=== PATIENT | male | born 1965 | race Caucasian/White ===

== ENCOUNTER 2020-05-15 10:01 | Inpatient (IN) ==
[2020-05-15] MEDS ORDERED: DIATRIZOATE MEGLU/DIATRIZO SOD 30 ML BOTTLE PO ONE (10:02)
[2020-05-15] MEDS ORDERED: IOPAMIDOL 100 ML BOTTLE IV ONE (10:02)
[2020-05-15] MEDS ORDERED: 0.9 % SODIUM CHLORIDE 1,000 ML IV ONE (10:17)
[2020-05-15] MEDS ORDERED: ONDANSETRON 4 MG/2 ML VIAL IV ONE (10:17)
[2020-05-15] MEDS: HYDROmorphone 0.5 MG/0.5 ML SYRINGE IV PRN ×8 (10:31→22:13)
--- NOTE | 2020-05-15 10:34 | Emergency Department Note ---
Abdominal Pain HPI - General Chief Complaint: Abdominal Pain Stated Complaint: Pancreatitis Time Seen by Provider: 05/15/20 10:16 Source: patient Mode of arrival: ambulatory Limitations: no limitations - History of Present Illness HPI Narrative: 54-year-old male presents with upper mid sharp stabbing abdominal pain since , about 72 hours ago. Has a history of pancreatitis and feels like he has pancreatitis again. Has had multiple abdominal surgeries in the past couple of years. States he had a foot of colon removed and also had a small bowel obstruction, states "they found meat floating around in their ". In 2019 he also had his gallbladder out. States he has not had any episodes since then. On Saturday night he ate a big greasy cheeseburger right before this started. He said in the past when he has had pancreatitis he was drinking quite a bit of alcohol but he is not currently. He did have one episode of nausea and vomiting on . He has had diarrhea intermittently since including this morning. No fever or chills. He currently is not nauseated but does not have much of an appetite. No dysuria or frequency. He does have hydrocodone tens at home that he takes very rarely for severe cluster headaches and states he did take 1 of those at home last night but not today. - Related Data Home Medications Medication Instructions Recorded Confirmed Hydrocodone-Acetamin 10-325 mg 1 tab PO Q4-6HP PRN 05/15/20 05/15/20 Allergies Allergy/AdvReac Type Severity Reaction Status Date / Time codeine Allergy Mild Rash Verified 05/15/20 10:07 Review of Systems All systems ED: reviewed and negative except as stated. Abdominal Pain PMH - Past Medical History Medical history: Reports: other (Pancreatitis) Surgical history ED: Reports: cholecystectomy, other (Abdominal surgeries for bowel resection) - Social History Smoking status: Never smoker Alcohol use: Reports: Occasionally Drug use: Reports: none Physical Exam Limitations: no limitations General appearance: alert, grimacing Head: atraumatic, normocephalic, normal inspection Eye: Present: normal appearance. Absent: conjunctival injection ENT: Present: mucous membranes moist Chest: Present: symmetric chest wall rise Respiratory: Present: normal lung sounds bilaterally. Absent: respiratory distress, rales/crackles, accessory muscle use Cardiovascular: Present: regular rate, normal heart sounds Abdominal: Present: soft, distention (difuse moderate), tenderness (difuse but worse mid upper abd), normal bowel sounds. Absent: guarding, rebound, mass Extremities: Present: normal inspection Neurological: Present: alert, oriented X3 Psychiatric: Present: normal affect, normal mood Skin: Present: warm, dry, intact, normal color Course Course Narrative: At 1417 I did speak with the hospitalist, Dr. Ribeiro who agrees to accept this patient. Vital Signs Temperature 97.5 F 05/15/20 10:02 Pulse Rate 106 H 05/15/20 10:02 Respiratory Rate 05/15/20 10:02 Blood Pressure 122/77 05/15/20 10:02 Pulse Oximetry (%) 100 05/15/20 10:02 Temperature 97.5 F 05/15/20 10:02 Pulse Rate 90 05/15/20 14:09 Respiratory Rate 05/15/20 10:02 Blood Pressure 151/108 05/15/20 14:01 Pulse Oximetry (%) 96 05/15/20 14:09 Abdominal Pain - Lab Data Lab results reviewed: Yes I reviewed the patient's lab results. Result diagrams: 05/15/20 10:33 05/15/20 11:50 Lab Results 05/15/20 05/15/20 05/15/20 Range/Units 10:33 10:33 11:50 WBC 6.0 (4.50-11.00) K/mcL RBC 5.27 (4.63-6.08) M/mcL Hgb 16.5 (13.7-17.5) g/dL Hct 47.1 (40.1-51.0) % POC Hct 48.0 (41.0-55.0) % MCV 89.4 (80.0-100.0) fL MCH 31.3 (26.0-34.0) pg MCHC 35.0 (31.0-36.0) g/dL RDW 12.2 (11.5-14.5) % Plt Count 182 (140-440) K/mcL MPV 12.0 H (7.4-10.4) fL Gran % 56.7 (38.0-78.0) % Lymph % (Auto) 32.5 (15.5-49.0) % [place] % (Auto) 9.8 (1.0-12.0) % Eos % (Auto) 0.8 (0.0-7.0) % Baso % (Auto) 0.2 (0.0-2.0) % Gran # 3.42 (1.80-8.00) K/mcL Lymph # (Auto) 1.96 (1.50-4.80) K/mcL [place] # (Auto) 0.59 (0.10-0.90) K/mcL Eos # (Auto) 0.05 (0.00-0.70) K/mcL Baso # (Auto) 0.01 (0.00-0.30) K/mcL POC Sodium 137 (133-145) mmol/L Sodium TNP 136 POC Potassium 4.6 (3.3-5.1) mmol/L Potassium TNP 4.0 POC Chloride 101 (96-108) mmol/L Chloride TNP 97 Carbon Dioxide TNP 26 POC Total CO2 29 (22-30) mmol/L Anion Gap TNP 13.0 POC BUN 20 (6-20) mg/dl BUN TNP 14 Creatinine TNP 1.0 POC Creatinine 1.1 (0.7-1.2) mg/dl GFR Calculation Not Reportable 84 Glucose TNP 136 H POC Glucose 153 H (70-105) mg/dL Calcium TNP 8.3 L POC WB Ioniz Calcium 1.08 L (1.16-1.32) mmol/L Total Bilirubin TNP 1.0 AST TNP 50 H ALT TNP 115 H Alkaline Phosphatase TNP 52 Total Protein TNP 6.6 Albumin TNP 4.1 Globulin TNP 2.5 Albumin/Globulin Ratio TNP 1.6 Lipase TNP 602 H - Radiology Data Radiology results reviewed: Yes I reviewed the patient's radiology results. Disposition Pt seen by STAFF TECHNOLOGIST/PA only: Yes Clinical Impression: Intractable abdominal pain, Pancreatitis, acute Disposition: Xfer As Inpt ([facility]) Condition: Fair Referrals: Patti Thompson ARNP [Primary Care Provider] - Time of Disposition: 14:17
[2020-05-15 10:37] LABS: POC Blood Urea Nitrogen 20 mg/dl (6-20); POC CO2 29 mmol/L (22-30); POC Calcium, Ionized 1.08 mmol/L (1.16-1.32); POC Chloride 101 mmol/L (96-108); POC Creatinine 1.1 mg/dl (0.7-1.2); POC Glucose, Random 153 mg/dL (70-105); POC Potassium 4.6 mmol/L (3.3-5.1); POC Sodium 137 mmol/L (133-145)
[2020-05-15 11:11] LABS: Basophils # (Auto) 0.01 K/mcL (0.00-0.30); Basophils % (Auto) 0.2 % (0.0-2.0); Eosinophils # (Auto) 0.05 K/mcL (0.00-0.70); Eosinophils % (Auto) 0.8 % (0.0-7.0); Granulocytes % (Auto) 56.7 % (38.0-78.0); Hematocrit 47.1 % (40.1-51.0); Hemoglobin 16.5 g/dL (13.7-17.5); Lymphocytes # (Auto) 1.96 K/mcL (1.50-4.80); Lymphocytes % (Auto) 32.5 % (15.5-49.0); Mean Cell Volume 89.4 fL (80.0-100.0); Monocytes # (Auto) 0.59 K/mcL (0.10-0.90); Monocytes % (Auto) 9.8 % (1.0-12.0); Platelet Count 182 K/mcL (140-440); RBC 5.27 M/mcL (4.63-6.08); Red Cell Distribution Width 12.2 % (11.5-14.5)
--- NOTE | 2020-05-15 11:35 | Cat Scan Report ---
INDICATION: severe mid upper abd pain, history pancreatic resection COMPARISON: None. TECHNIQUE: Axial images were obtained through the abdomen and pelvis. Sagittally and coronally reformatted images. 80 mL Isovue 370 injected intravenously. Oral contrast material was administered FINDINGS: Lung bases:Negative. No pulmonary parenchymal nodule. No pleural fluid or pericardial fluid Liver:There are nonspecific low density lesions in the liver. These include: 4 mm left lobe, image 25 8 mm right lobe, image 39 7 mm right lobe, image 49 Findings are nonspecific and these are probably benign. This patient has a history of primary malignancy ultrasound may be helpful to exclude small solid lesions. Liver is otherwise negative. No evidence for cirrhosis. Liver contour is smooth Gallbladder, bilary:Previous cholecystectomy. No dilated bile ducts Spleen:No splenomegaly. Normal enhancement of splenic and portal veins. Pancreas:There is peripancreatic inflammatory change. No focal intrapancreatic attenuation abnormality. No evidence for pancreatic necrosis or abscess. Pancreatic parenchyma enhances normally. There is no focal mass. There is no pseudocyst. Appearance is consistent with interstitial edematous pancreatitis. Pancreatic duct is not dilated. No solid pancreatic mass. There is minimal retroperitoneal fluid in the right anterior pararenal space. Adrenal glands:Negative Kidneys, ureters, bladder:No solid or cystic renal mass. No hydronephrosis. No obstructing calculi. There is a 3 mm nonobstructing right mid to upper pole stone There is no hydroureter. No ureteral stone No bladder calculi or detectable mass Gastrointestinal:No detectable colonic mass. There is no diverticulitis. Patient has undergone previous partial colectomy with a right sided enterocolonic anastomosis Small bowel is negative. No mechanical small bowel obstruction. Stomach and duodenum are unremarkable Appendix: The appendix is not present Vascular:Negative abdominal aorta. Superior mesenteric artery and celiac trunk are normal. Normal opacification of the inferior mesenteric artery Lymphatic:No retroperitoneal or mesenteric adenopathy Mesentery, peritoneum: No free intraperitoneal fluid. No mesenteric or retroperitoneal mass.. No intra-abdominal abscess Reproductive:Prostate is not significantly enlarged Musculoskeletal:No lumbar compression fractures. Sacrum and pelvis are negative. No hip fracture. Patulous anterior abdominal wall. Small umbilical hernia with small bowel extending superficially to the skin surface IMPRESSION: 1. Interstitial edematous pancreatitis. No pancreatic abscess or necrosis 2. Nonspecific low density lesions in the liver 3. Nonobstructing right renal calculus 4. Previous partial colectomy with enterocolonic anastomosis 5. Patulous anterior abdominal wall and small umbilical hernia The exam was performed using radiation dose optimization techniques including, but not limited to, automated exposure control, adjustment of the mA and/or kV according to patient size and use of iterative reconstruction technique. Interpreted and Authenticated by: Shahram Harp 05/15/20
[2020-05-15 12:59] LABS: ALT/SGPT 115 U/l (0-40); AST/SGOT 50 U/l (0-37); Albumin 4.1 gm/dL (3.2-5.2); Albumin/Globulin Ratio 1.6 (1.0-2.3); Alkaline Phosphatase 52 U/L (39-117); Blood Urea Nitrogen 14 mg/dl (6-20); Calcium 8.3 mg/dl (8.6-10.4); Carbon Dioxide 26 mmol/L (22-30); Chloride 97 mmol/L (96-108); Globulin 2.5 gm/dL (2.2-3.7); Glomerular Filtration Rate 84; Glucose 136 mg/dL (70-105)
[2020-05-15] MEDS ORDERED: HYDROmorphone 1 MG/ML SYRINGE IV ONE (13:23)
--- NOTE | 2020-05-15 14:29 | Internal Med History&Physical ---
Medical - H&P: HPI Patient information: Note initiated : 05/15/20 at 2:28 pm Service Date, if different from initiated Date: [] Patient: Davon Gonzalez a 54 y/o M admitted on for Pancreatitis. Chief Complaint: [] Chief complaint: Abdominal pain since History of present illness: Mr. Gonzalez is a 54 year old M with a history of gallstone pancreatitis since 2016 and had recurrent episodes leading to bowel necrosis and partial colectomy and prolonged hospitalization in 2016 and . He status post cholecystectomy. For the last year he has been doing well until he started experiencing abdominal discomfort 4 out of 10 starting this that progressed over the next few days.. Over the next 3 days his pain worsened from 4 out of 10-10 out of 10 associated nausea. Incidentally the symptoms dramatically worsen after he ate a cheeseburger yesterday. He now presents to the ER with above symptoms. Denies fever/flank discoloration/bloody stool/headache or photophobia or jaundice. He had 1 drink [place] Mule last Saturday. Initial work-up in the ER was consistent with acute pericarditis on CT abdomen/lipase over 600. Patient received crystalloid/antiemetics/analgesics. Hospital service was consulted for admission At the time evaluation patient is alert and oriented. He was able to answer most the question and endorse history as above. He says he has been sober exc ept for occasional drink on the weekend. He denies changes in medications. Review of systems 10 point review system was performed and is negative except for ones discussed above Medical - H&P: PMH Medical history: Recurrent pancreatitis Cholecystectomy Partial colon resection following bowel perforation Chronic pain Medical - H&P: Meds Home Medications Medication Instructions Recorded Confirmed Type Hydrocodone-Acetamin 10-325 mg 1 tab PO Q4-6HP PRN 05/15/20 05/15/20 History Allergies Allergy/AdvReac Type Severity Reaction Status Date / Time codeine Allergy Mild Rash Verified 05/15/20 10:07 Medical - H&P: Exam - Constitutional Vitals: Temp Pulse Resp BP Pulse Ox 97.5 F 90 20 151/108 96 05/15/20 10:02 05/15/20 14:09 05/15/20 10:02 05/15/20 14:01 05/15/20 14:09 General appearance: no acute distress Exam: Head normocephalic Oral cavity dry No ear nose discharge Neck no lymphadenopathy No scleral icterus S1-S2 regular rhythm no murmur Nonlabored breathing Abdomen tender, diminished breath sounds, midline surgical scar but no ecchymosis or bruising Lower extremity no cyanosis clubbing or joint swelling Skin no suspicious lesion Psych alert cooperative Neuro nonfocal Medical - H&P: Reslt - Labs CBC & Chem 7: 05/15/20 10:33 05/15/20 11:50 Labs: Short CBC 05/15/20 Range/Units 10:33 WBC 6.0 (4.50-11.00) K/mcL Hgb 16.5 (13.7-17.5) g/dL Hct 47.1 (40.1-51.0) % Plt Count 182 (140-440) K/mcL BMP 05/15/20 05/15/20 10:33 11:50 Sodium TNP 136 Potassium TNP 4.0 Chloride TNP 97 Carbon Dioxide TNP 26 BUN TNP 14 Creatinine TNP 1.0 Glucose TNP 136 H Calcium TNP 8.3 L Liver Function 05/15/20 05/15/20 Range/Units 10:33 11:50 Total Bilirubin TNP 1.0 AST TNP 50 H ALT TNP 115 H Alkaline Phosphatase TNP 52 Albumin TNP 4.1 Medical - H&P: A/P (1) Pancreatitis, acute Current visit: Yes Status: Acute * Acute pancreatitis-recurrent in nature. Prior gallstones status post cholecystectomy. Intermittent alcohol use. Low [place] and [place] 2 score. Patient be admitted to [facility] for conservative management according bowel rest/antiemetics/analgesics and crystalloids. Keep n.p.o.CT no evidence of pancreatic necrosis/hemorrhage or pseudocyst * Abdominal pain management as needed opiods * Full code * Prophylaxis heparin Plan * Inpatient admission * Serial CRP/lipase * Bowel rest and pancreatitis management per protocol * Aggressive pain management
[2020-05-15] MEDS ORDERED: ACETAMINOPHEN 650 MG/65 ML BOTTLE IV PRN (14:40)
[2020-05-15] MEDS ORDERED: hydrALAZINE 20 MG/ML VIAL IV PRN (14:40)
[2020-05-15] MEDS ORDERED: HYDROmorphone 0.5 MG/0.5 ML SYRINGE IV PRN (14:40)
[2020-05-15] MEDS ORDERED: MAGNESIUM SULFATE 2 GM/50 ML BAG IV PRN (14:40)
[2020-05-15] MEDS ORDERED: PROMETHAZINE 25 MG/ML VIAL IV PRN (14:40)
[2020-05-15] MEDS ORDERED: ONDANSETRON 4 MG ODT TABLET SL PRN (14:40)
[2020-05-15] MEDS ORDERED: POLYETHYLENE GLYCOL 3350 17 GM PACKET PO PRN (14:40)
[2020-05-15] MEDS ORDERED: MELATONIN 3 MG TABLET PO PRN (14:40)
[2020-05-15] MEDS ORDERED: POTASSIUM CHLORIDE 40 MEQ in DEXTROSE 5% IN WATER 500 ML IV PRN (14:40)
[2020-05-15] MEDS ORDERED: METOPROLOL TARTRATE 5 MG/5 ML VIAL IV PRN (14:40)
[2020-05-15] MEDS ORDERED: BISACODYL 10 MG SUPP.RECT PR PRN (14:40)
[2020-05-15] MEDS ORDERED: ONDANSETRON 4 MG/2 ML VIAL IV PRN (14:40)
[2020-05-15] MEDS: 0.9 % SODIUM CHLORIDE 2,000 ML IV SCH ×2 (15:40→16:53)
[2020-05-15] MEDS: 0.9 % SODIUM CHLORIDE 1,000 ML IV SCH (18:09)
[2020-05-15] MEDS: HEPARIN 5,000 UNIT/ML VIAL SQ SCH (21:10)
[2020-05-15] MEDS: SENNOSIDES/DOCUSATE SODIUM 1 TAB TABLET PO SCH (21:10)
[2020-05-15] MEDS: DOCUSATE SODIUM 100 MG CAPSULE PO SCH (21:10)
[2020-05-15] MEDS: 0.9 % SODIUM CHLORIDE 10 ML SYRINGE IV SCH (21:10)
[2020-05-15] MEDS ORDERED: HYDROmorphone 1 MG/ML SYRINGE ONE (22:12)
[2020-05-16] MEDS ORDERED: HYDROmorphone 1 MG/ML SYRINGE ONE ×4 (00:13→06:24)
[2020-05-16] MEDS: HYDROmorphone 0.5 MG/0.5 ML SYRINGE IV PRN ×12 (00:19→23:03)
[2020-05-16] MEDS: 0.9 % SODIUM CHLORIDE 1,000 ML IV SCH ×5 (00:39→18:56)
[2020-05-16] MEDS: 0.9 % SODIUM CHLORIDE 10 ML SYRINGE IV SCH ×3 (04:25→23:02)
[2020-05-16] MEDS: PANTOPRAZOLE 40 MG TABLET PO SCH (06:29)
[2020-05-16 08:21] LABS: Hematocrit 40.1 % (40.1-51.0); Hemoglobin 13.2 g/dL (13.7-17.5); Mean Corpuscular HGB Conc 32.9 g/dL (31.0-36.0); Mean Platelet Volume 10.8 fL (7.4-10.4); Platelet Count 164 K/mcL (140-440); RBC 4.22 M/mcL (4.63-6.08); Red Cell Distribution Width 12.5 % (11.5-14.5); WBC 4.8 K/mcL (4.50-11.00)
[2020-05-16 08:28] LABS: ALT/SGPT 97 U/l (0-40); AST/SGOT 51 U/l (0-37); Albumin 4.1 gm/dL (3.2-5.2); Albumin/Globulin Ratio 1.6 (1.0-2.3); Alkaline Phosphatase 69 U/L (39-117); Bilirubin,Direct 0.3 mg/dL (0.0-0.3); Bilirubin,Total 0.9 mg/dL (0.0-1.0); Blood Urea Nitrogen 12 mg/dl (6-20); C-Reactive Protein 4.6 mg/dl (0.0-0.8); Calcium 7.9 mg/dl (8.6-10.4); Carbon Dioxide 23 mmol/L (22-30); Chloride 102 mmol/L (96-108); Globulin 2.5 gm/dL (2.2-3.7); Glomerular Filtration Rate 96; Glucose 93 mg/dL (70-105); Lactate Dehydrogenase 200 U/L (94-250); Triglycerides 303 mg/dl (<150); Uric Acid 4.6 mg/dL (2.5-8.0)
[2020-05-16] MEDS: DOCUSATE SODIUM 100 MG CAPSULE PO SCH ×2 (08:42→20:58)
[2020-05-16] MEDS: HEPARIN 5,000 UNIT/ML VIAL SQ SCH ×2 (08:42→21:02)
[2020-05-16 08:56] LABS: Eosinophils % (Manual) 2 % (0-7); Lymphocytes % 42 % (15-49); Monocytes % (Manual) 4 % (1-12); Platelet Estimate NORMAL (NORMAL); RBC Morphology NORMAL (NORMAL); Segmented Neutrophils % 52 % (38-78)
--- NOTE | 2020-05-16 09:11 | Internal Med Progress Note ---
Medical - PN: Subj Patient information: Note initiated : 05/16/20 at 9:09 am Service Date, if different from initiated Date: [] Patient: Davon Gonzalez a 54 y/o M admitted on 05/15/20 for Pancreatitis. Chief Complaint: [] Interval history: Mr. Gonzalez is a 54 year old M with a history of gallstone pancreatitis since and had recurrent episodes leading to bowel necrosis and partial colectomy and prolonged hospitalization in 2016 and . He status post cholecystectomy. For the last year he has been doing well until he started experiencing abdominal discomfort 4 out of 10 starting this that progressed over the next few days.. Over the next 3 days his pain worsened from 4 out of 10-10 out of 10 associated nausea. Incidentally the symptoms dramatically worsen after he ate a cheeseburger yesterday. He now presents to the ER with above symptoms. Denies fever/flank discoloration/bloody stool/headache or photophobia or jaundice. He had 1 drink [place] Mule last Saturday. Initial work-up in the ER was consistent with acute pericarditis on CT abdomen/lipase over 600. Patient received crystalloid/antiemetics/analgesics. Hospital service was consulted for admission At the time evaluation patient is alert and oriented. He was able to answer most the question and endorse history as above. He says he has been sober except for occasional drink on the weekend. He denies changes in medications. 05/16-patient clinically improving. White count stable. Hemodynamic stable. Abdominal pain improving. Attempt oral clears. - Constitutional Vitals: Vital Signs Temp Pulse Resp BP Pulse Ox 98.2 F 65 18 128/89 95 05/16/20 07:39 05/16/20 08:00 05/16/20 07:39 05/16/20 07:39 05/16/20 08:00 Period Temp Pulse Resp BP Sys/[place]illa Pulse Ox Last 24 Hr 97.2 F-98.2 F 65-106 16-24 113-180/77-114 91-100 Intake and Output 05/15/20 05/16/20 05/16/20 21:59 05:59 13:59 Intake Total 1217 1000 Output Total 600 250 Balance 1217 400 -250 Weight 188 lb Intake & Output: Intake & Output 05/15/20 05/16/20 05/16/20 21:59 05:59 13:59 Intake Total 1217 1000 Output Total 600 250 Balance 1217 400 -250 Weight 188 lb Intake: IV 1217 1000 Sodium Chloride 0.9% 1,000 ml @ 1217 1000 125 mls/hr IV .Q8H [facility] Rx#: [id number] Oral 0 0 Output: Void Amount 600 250 Other: Urine Appearance Clear Clear Urine Color Dark Marce Dark Yellow General appearance: no acute distress Exam: Distended but minimally tender abdomen Alert oriented Nonlabored breathing Medical - PN: Obj Da - Labs CBC & Chem 7: 05/16/20 05:25 05/16/20 05:25 Labs: Abnormal Lab Results 05/16/20 05/16/20 05/15/20 05:25 05:25 11:50 RBC 4.22 L Hgb 13.2 L MPV 10.8 H Glucose 136 H POC Glucose Calcium 7.9 L 8.3 L POC WB Ioniz Calcium Phosphorus 2.0 L GGT 229 H AST 51 H 50 H ALT 97 H 115 H C-Reactive Protein 4.6 H Triglycerides 303 H Lipase 602 H 05/15/20 05/15/20 10:33 10:33 RBC Hgb MPV 12.0 H Glucose POC Glucose 153 H Calcium POC WB Ioniz Calcium 1.08 L Phosphorus GGT AST ALT C-Reactive Protein Triglycerides Lipase Meds: Medications Acetaminophen (Tylenol) 650 mg PO Q4-6HP PRN; Protocol PRN Reason: Per Pain Protocol/Fever > 101 Bisacodyl (Dulcolax) 10 mg ND Q2-3DAYS PRN PRN Reason: Constipation Docusate Sodium (Colace) 100 mg PO BID [facility] Last Admin: 05/16/20 08:42 Dose: Not Given Documented by: Heparin Sodium (Porcine) (Heparin) 5,000 unit SQ Q12 [facility] Last Admin: 05/16/20 08:42 Dose: 5,000 unit Documented by: Hydralazine HCl (Apresoline) 10 mg IV Q4-6HP PRN PRN Reason: Hypertension Hydromorphone HCl (Dilaudid) 0 mg IV Q2HP PRN; Protocol PRN Reason: Per Pain Protocol Last Admin: 05/16/20 08:42 Dose: 0.5 mg Documented by: Magnesium Sulfate (Magnesium Sulfate) 2 gm in 50 mls @ 50 mls/hr IV UD PRN PRN Reason: MG = or < 1.7 Potassium Chloride 40 meq/ (Dextrose) 520 mls @ 130 mls/hr IV UD PRN PRN Reason: K+ = or < 3.5 Sodium Chloride (Sodium Chloride 0.9%) 2,000 mls @ 0 mls/hr IV BOLUS [facility] Last Admin: 05/15/20 16:53 Dose: 1,000 mls/hr Documented by: Sodium Chloride (Sodium Chloride 0.9%) 1,000 mls @ 125 mls/hr IV .Q8H [facility] Last Admin: 05/16/20 02:35 Dose: 125 mls/hr Documented by: Acetaminophen (Ofirmev) 650 mg in 65 mls @ 130 mls/hr IV Q6HP PRN; Protocol PRN Reason: Per Pain Protocol/Fever > 101 Last Admin: 05/15/20 19:36 Dose: 130 mls/hr Documented by: Melatonin (Melatonin 3mg Tablet) 3 mg PO HSP PRN PRN Reason: Insomnia Metoprolol Tartrate (Lopressor) 5 mg IV Q5M PRN PRN Reason: Heart Rate > 140 bpm Ondansetron HCl (Zofran Odt) 4 mg SL Q4-6HP PRN; Protocol PRN Reason: Nausea And Vomiting Ondansetron HCl (Zofran) 4 mg IV Q4-6HP PRN; Protocol PRN Reason: Nausea And Vomiting Pantoprazole Sodium (Protonix) 40 mg PO QAMAC [facility] Last Admin: 05/16/20 06:29 Dose: 40 mg Documented by: Polyethylene Glycol (Miralax) 17 gm PO DAILYP PRN PRN Reason: Constipation Promethazine HCl (Phenergan) 6.25 mg IV Q4-6HP PRN; Protocol PRN Reason: Nausea And Vomiting Senna/Docusate Sodium (Senna Plus Tablet) 1 tab PO HS [facility] Last Admin: 05/15/20 21:10 Dose: Not Given Documented by: Sodium Chloride (Saline Flush) 10 ml IV Q8 [facility] Last Admin: 05/16/20 04:25 Dose: Not Given Documented by: Medical - PN: A/P - Time Spent With Patient Total time spent is greater than 50% in coordination of care (as documented) at patient's floor/unit and/or counseling patient: 15 - 24 minutes (1) Pancreatitis, acute Status: Acute Assessment and plan: * Acute pancreatitis-clinical improvement noted. Prior gallstones status post cholecystectomy. Intermittent alcohol use. Low [place] and [place] 2 score. Start oral clears. * Abdominal pain management as needed opiods * Full code * Prophylaxis heparin Plan * Start oral clear * Bowel rest and pancreatitis management per protocol * Aggressive pain management Current Visit: Yes Medical - PN: Qual - Stroke Symptom Onset Unknown: No - VTE Deep Vein Thrombosis/Pulmonary Embolism Present on Admission: No
[2020-05-16] MEDS: 0.9 % SODIUM CHLORIDE 2,000 ML IV SCH (10:45)
[2020-05-16] MEDS: SENNOSIDES/DOCUSATE SODIUM 1 TAB TABLET PO SCH (20:59)
[2020-05-17] MEDS: HYDROmorphone 0.5 MG/0.5 ML SYRINGE IV PRN ×3 (00:52→06:52)
[2020-05-17] MEDS: 0.9 % SODIUM CHLORIDE 1,000 ML IV SCH ×2 (02:34→06:54)
[2020-05-17] MEDS: 0.9 % SODIUM CHLORIDE 10 ML SYRINGE IV SCH ×3 (06:25→21:04)
[2020-05-17] MEDS: PANTOPRAZOLE 40 MG TABLET PO SCH (06:44)
[2020-05-17 07:10] LABS: Hematocrit 35.5 % (40.1-51.0); Hemoglobin 12.1 g/dL (13.7-17.5); Mean Cell Volume 92.9 fL (80.0-100.0); Mean Corpuscular HGB Conc 34.1 g/dL (31.0-36.0); Platelet Count 133 K/mcL (140-440); RBC 3.82 M/mcL (4.63-6.08); Red Cell Distribution Width 12.1 % (11.5-14.5); WBC 3.3 K/mcL (4.50-11.00)
[2020-05-17 07:32] LABS: ALT/SGPT 65 U/l (0-40); AST/SGOT 31 U/l (0-37); Albumin 3.7 gm/dL (3.2-5.2); Albumin/Globulin Ratio 1.6 (1.0-2.3); Alkaline Phosphatase 61 U/L (39-117); Bilirubin,Total 0.6 mg/dL (0.0-1.0); Blood Urea Nitrogen 6 mg/dl (6-20); Calcium 8.1 mg/dl (8.6-10.4); Carbon Dioxide 26 mmol/L (22-30); Chloride 106 mmol/L (96-108); Globulin 2.3 gm/dL (2.2-3.7); Glomerular Filtration Rate 96; Glucose 119 mg/dL (70-105); Lactate Dehydrogenase 176 U/L (94-250); Triglycerides 200 mg/dl (<150); Uric Acid 4.8 mg/dL (2.5-8.0)
[2020-05-17 07:33] LABS: Bilirubin,Direct < 0.2 mg/dL (0.0-0.3); Phosphorous 2.9 mg/dL (2.7-4.5)
[2020-05-17 08:43] LABS: Eosinophils % (Manual) 3 % (0-7); Lymphocytes % 43 % (15-49); Monocytes % (Manual) 3 % (1-12); Platelet Estimate DECREASED (NORMAL); RBC Morphology NORMAL (NORMAL); Segmented Neutrophils % 51 % (38-78)
[2020-05-17] MEDS: DOCUSATE SODIUM 100 MG CAPSULE PO SCH ×2 (08:59→21:02)
[2020-05-17] MEDS: oxyCODONE HCL 5 MG TABLET PO PRN ×4 (08:59→21:02)
[2020-05-17] MEDS: HEPARIN 5,000 UNIT/ML VIAL SQ SCH ×2 (09:03→21:05)
[2020-05-17 09:06] LABS: C-Reactive Protein 3.9 mg/dl (0.0-0.8)
--- NOTE | 2020-05-17 09:11 | Internal Med Progress Note ---
Medical - PN: Subj Patient information: Note initiated : 05/17/20 at 9:10 am Service Date, if different from initiated Date: [] Patient: Davon Gonzalez a 54 y/o M admitted on 05/15/20 for Pancreatitis. Chief Complaint: [] Interval history: Mr. Gonzalez is a 54 year old M with a history of gallstone pancreatitis since and had recurrent episodes leading to bowel necrosis and partial colectomy and prolonged hospitalization in 2016 and . He status post cholecystectomy. For the last year he has been doing well until he started experiencing abdominal discomfort 4 out of 10 starting this that progressed over the next few days.. Over the next 3 days his pain worsened from 4 out of 10-10 out of 10 associated nausea. Incidentally the symptoms dramatically worsen after he ate a cheeseburger yesterday. He now presents to the ER with above symptoms. Denies fever/flank discoloration/bloody stool/headache or photophobia or jaundice. He had 1 drink [place] Mule last Saturday. Initial work-up in the ER was consistent with acute pericarditis on CT abdomen/lipase over 600. Patient received crystalloid/antiemetics/analgesics. Hospital service was consulted for admission At the time evaluation patient is alert and oriented. He was able to answer most the question and endorse history as above. He says he has been sober except for occasional drink on the weekend. He denies changes in medications. 05/16-patient clinically improving. White count stable. Hemodynamic stable. Abdominal pain improving. Attempt oral clears. 05/17-patient doing a lot better. Off IV Dilaudid. Transition to oral opioids. Transition to low-fat diet. DC IV fluids. Ambulating. Abdominal pain improved. Distention improved. No overnight fever chills. Stable hemodynamics. Will likely discharge in 24 hours pending clinical improvement. - Constitutional Vitals: Vital Signs Temp Pulse Resp BP Pulse Ox 98.1 F 71 20 143/99 95 05/17/20 08:00 05/17/20 08:00 05/17/20 08:00 05/17/20 08:00 05/17/20 08:00 Period Temp Pulse Resp BP Sys/Villa Pulse Ox Last 24 Hr 97.4 F-99.2 F 71-84 129-152/87-99 92-98 Intake and Output 05/16/20 05/17/20 05/17/20 21:59 05:59 13:59 Intake Total 1203 1254 240 Output Total 1250 2225 900 Balance -47 -971 -660 Weight 186 lb Intake & Output: Intake & Output 05/16/20 05/17/20 05/17/20 21:59 05:59 13:59 Intake Total 1203 1254 240 Output Total 1250 2225 900 Balance -47 -971 -660 Weight 186 lb Intake: IV 513 954 Sodium Chloride 0.9% 1,000 ml @ 513 954 125 mls/hr IV .Q8H [facility] Rx#: [id number] Oral 690 300 240 Output: Void Amount 1250 2225 900 Other: Meal Dinner Breakfast Percent of Meal Consumed 100% 100% Feeding Ability Independent Urine Appearance Clear Clear Urine Color Bright Yellow Straw Urine Odor Normal Normal # Voids 1 General appearance: no acute distress Exam: Alert oriented Nonlabored breathing Nondistended abdomen No anxiety Medical - PN: Obj Da - Labs CBC & Chem 7: 05/17/20 05:30 05/17/20 05:30 Labs: Abnormal Lab Results 05/17/20 05/17/20 05/17/20 05:30 05:30 05:30 WBC 3.3 L RBC 3.82 L Hgb 12.1 L Hct 35.5 L Plt Count 133 L MPV 11.0 H Platelet Estimate Decreased A Glucose 119 H POC Glucose Calcium 8.1 L POC WB Ioniz Calcium Phosphorus GGT 163 H AST ALT 65 H C-Reactive Protein 3.9 H Triglycerides 200 H Lipase 136 H 05/16/20 05/16/20 05/15/20 05:25 05:25 11:50 WBC RBC 4.22 L Hgb 13.2 L Hct Plt Count MPV 10.8 H Platelet Estimate Glucose 136 H POC Glucose Calcium 7.9 L 8.3 L POC WB Ioniz Calcium Phosphorus 2.0 L GGT 229 H AST 51 H 50 H ALT 97 H 115 H C-Reactive Protein 4.6 H Triglycerides 303 H Lipase 602 H 05/15/20 05/15/20 10:33 10:33 WBC RBC Hgb Hct Plt Count MPV 12.0 H Platelet Estimate Glucose POC Glucose 153 H Calcium POC WB Ioniz Calcium 1.08 L Phosphorus GGT AST ALT C-Reactive Protein Triglycerides Lipase Meds: Medications Acetaminophen (Tylenol) 650 mg PO Q4-6HP PRN; Protocol PRN Reason: Per Pain Protocol/Fever > 101 Bisacodyl (Dulcolax) 10 mg OR Q2-3DAYS PRN PRN Reason: Constipation Docusate Sodium (Colace) 100 mg PO BID [facility] Last Admin: 05/17/20 08:59 Dose: 100 mg Documented by: Heparin Sodium (Porcine) (Heparin) 5,000 unit SQ Q12 [facility] Last Admin: 05/17/20 09:03 Dose: Not Given Documented by: Hydralazine HCl (Apresoline) 10 mg IV Q4-6HP PRN PRN Reason: Hypertension Magnesium Sulfate (Magnesium Sulfate) 2 gm in 50 mls @ 50 mls/hr IV UD PRN PRN Reason: MG = or < 1.7 Potassium Chloride 40 meq/ (Dextrose) 520 mls @ 130 mls/hr IV UD PRN PRN Reason: K+ = or < 3.5 Sodium Chloride (Sodium Chloride 0.9%) 1,000 mls @ 125 mls/hr IV .Q8H [facility] Last Admin: 05/17/20 06:54 Dose: Not Given Documented by: Acetaminophen (Ofirmev) 650 mg in 65 mls @ 130 mls/hr IV Q6HP PRN; Protocol PRN Reason: Per Pain Protocol/Fever > 101 Last Admin: 05/15/20 19:36 Dose: 130 mls/hr Documented by: Melatonin (Melatonin 3mg Tablet) 3 mg PO HSP PRN PRN Reason: Insomnia Metoprolol Tartrate (Lopressor) 5 mg IV Q5M PRN PRN Reason: Heart Rate > 140 bpm Ondansetron HCl (Zofran Odt) 4 mg SL Q4-6HP PRN; Protocol PRN Reason: Nausea And Vomiting Ondansetron HCl (Zofran) 4 mg IV Q4-6HP PRN; Protocol PRN Reason: Nausea And Vomiting Oxycodone HCl (Roxicodone) 5 mg PO Q4-6HP PRN; Protocol PRN Reason: Per Pain Protocol Last Admin: 05/17/20 08:59 Dose: 5 mg Documented by: Pantoprazole Sodium (Protonix) 40 mg PO QAMAC [facility] Last Admin: 05/17/20 06:44 Dose: 40 mg Documented by: Polyethylene Glycol (Miralax) 17 gm PO DAILYP PRN PRN Reason: Constipation Promethazine HCl (Phenergan) 6.25 mg IV Q4-6HP PRN; Protocol PRN Reason: Nausea And Vomiting Senna/Docusate Sodium (Senna Plus Tablet) 1 tab PO HS [facility] Last Admin: 05/16/20 20:59 Dose: 1 tab Documented by: Sodium Chloride (Saline Flush) 10 ml IV Q8 [facility] Last Admin: 05/17/20 06:25 Dose: Not Given Documented by: Medical - PN: A/P - Time Spent With Patient Total time spent is greater than 50% in coordination of care (as documented) at patient's floor/unit and/or counseling patient: 15 - 24 minutes (1) Pancreatitis, acute Status: Acute Assessment and plan: * Acute pancreatitis-clinical improvement noted. Prior gallstones status post cholecystectomy. Intermittent alcohol use. Clinically improved. Now advancing to low-fat diet. * Abdominal pain -transition to oral opioids * Full code * Prophylaxis heparin Plan * Advance to low-fat diet * Transition to oral opioids * Possible discharge in 24 hours Current Visit: Yes Medical - PN: Qual - Stroke Symptom Onset Unknown: No - VTE Deep Vein Thrombosis/Pulmonary Embolism Present on Admission: No
[2020-05-17] MEDS: SENNOSIDES/DOCUSATE SODIUM 1 TAB TABLET PO SCH (21:02)
[2020-05-17] MEDS: ACETAMINOPHEN 325 MG TABLET PO PRN (21:02)
[2020-05-18] MEDS: oxyCODONE HCL 5 MG TABLET PO PRN ×2 (04:20→08:42)
[2020-05-18 06:16] LABS: Hematocrit 37.9 % (40.1-51.0); Hemoglobin 12.8 g/dL (13.7-17.5); Mean Cell Volume 91.5 fL (80.0-100.0); Mean Corpuscular HGB Conc 33.8 g/dL (31.0-36.0); Platelet Count 161 K/mcL (140-440); RBC 4.14 M/mcL (4.63-6.08); Red Cell Distribution Width 12.2 % (11.5-14.5)
[2020-05-18 06:52] LABS: ALT/SGPT 55 U/l (0-40); AST/SGOT 27 U/l (0-37); Albumin 3.8 gm/dL (3.2-5.2); Albumin/Globulin Ratio 1.6 (1.0-2.3); Alkaline Phosphatase 60 U/L (39-117); Bilirubin,Direct < 0.2 mg/dL (0.0-0.3); Bilirubin,Total 0.5 mg/dL (0.0-1.0); Blood Urea Nitrogen 9 mg/dl (6-20); Carbon Dioxide 26 mmol/L (22-30); Chloride 104 mmol/L (96-108); Globulin 2.4 gm/dL (2.2-3.7); Glomerular Filtration Rate 84; Glucose 122 mg/dL (70-105); Lactate Dehydrogenase 173 U/L (94-250); Triglycerides 152 mg/dl (<150); Uric Acid 5.7 mg/dL (2.5-8.0)
[2020-05-18 06:56] LABS: Phosphorous 4.6 mg/dL (2.7-4.5)
[2020-05-18] MEDS: ACETAMINOPHEN 325 MG TABLET PO PRN (07:17)
[2020-05-18] MEDS: PANTOPRAZOLE 40 MG TABLET PO SCH (07:18)
[2020-05-18] MEDS: 0.9 % SODIUM CHLORIDE 10 ML SYRINGE IV SCH (07:22)
[2020-05-18] MEDS: HEPARIN 5,000 UNIT/ML VIAL SQ SCH (08:41)
[2020-05-18] MEDS: DOCUSATE SODIUM 100 MG CAPSULE PO SCH (08:43)
--- NOTE | 2020-05-18 09:13 | Discharge Summary ---
Medical - DS: Prov Patient information: Note initiated : 05/18/20 at 9:11 am Service Date, if different from initiated Date: [] Patient: Davon Gonzalez 54 y/o M admitted on 05/15/20 for Pancreatitis. Chief Complaint: [] Date of admission: 05/15/20 14:55 Discharge date: 05/18/20 Primary care physician: Patti Thompson Consults: 05/15/20 Consult to Physician [CONS] Stat Comment: Consulting Provider: Timbo Garcia Reason For Exam: Physician to Consult Medical - DS: Meds - Discharge Medications Prescriptions: oxyCODONE HCL [Roxicodone] 5 mg PO Q4-6HP PRN #6 tab PRN Reason: Per Pain Protocol Prescription Printed Active and Home Medications: Home Medications Hydrocodone-Acetamin 10-325 mg 1 tab PO Q4-6HP PRN 05/15/20 [History Confirmed 05/15/20 Last Taken Unknown] oxyCODONE HCL [Roxicodone] 5 mg PO Q4-6HP PRN #6 tab 05/18/20 [Rx Last Taken Unknown] Medical - DS: Hosp Hospital Course: Discharge diagnosis * Acute pancreatitis-clinically resolved with conservative management. Likely combination of alcohol use/high-fat diet. * Abdominal pain -resolved. Brief hospital course Mr. Gonzalez is a 54 year old M with a history of gallstone pancreatitis since 2016 and had recurrent episodes leading to bowel necrosis and partial colectomy and prolonged hospitalization in 2016 and . He status post cholecystectomy. For the last year he has been doing well until he started experiencing abdominal discomfort 4 out of 10 starting this that progressed over the next few days.. Over the next 3 days his pain worsened from 4 out of 10-10 out of 10 associated nausea. Incidentally the symptoms dramatically worsen after he ate a cheeseburger yesterday. He now presents to the ER with above symptoms. Denies fever/flank discoloration/bloody stool/headache or photophobia or jaundice. He had 1 drink [place]ule last Saturday. Initial work-up in the ER was consistent with acute pericarditis on CT abdomen/lipase over 600. Patient received crystalloid/antiemetics/analgesics. Hospital service was consulted for admission At the time evaluation patient is alert and oriented. He was able to answer most the question and endorse history as above. He says he has been sober except for occasional drink on the weekend. He denies changes in medications. 05/16-patient clinically improving. White count stable. Hemodynamic stable. Abdominal pain improving. Attempt oral clears. 05/17-patient doing a lot better. Off IV Dilaudid. Transition to oral opioids. Transition to low-fat diet. DC IV fluids. Ambulating. Abdominal pain improved. Distention improved. No overnight fever chills. Stable hemodynamics. Will likely discharge in 24 hours pending clinical improvement. 05/18-patient doing well. Symptoms fully resolved. Tolerating low-fat diet. Discharging advised to refrain from alcohol and high-fat food. Discharge instructions below. Follow-up with PCP in 5 to 7 days Discharge diagnosis: , - Time Spent with Patient Total time spent providing and/or coordinating discharge services: Greater than 30 minutes Medical - DS: Exam - Constitutional Vitals: Vital Signs Temp Pulse Resp BP Pulse Ox 05/18/20 07:55 98.0 F 64 20 148/99 96 05/18/20 04:12 97.5 F 73 16 137/87 96 05/17/20 23:29 97.9 F 65 16 140/83 95 05/17/20 18:59 98.2 F 70 16 157/99 94 05/17/20 16:00 98.3 F 58 L 20 135/88 97 05/17/20 11:51 97.9 F 71 20 136/91 96 Intake and Output 05/17/20 05/18/20 05/18/20 21:59 05:59 13:59 Intake Total 240 250 240 Balance 240 250 240 Intake: Oral 240 250 240 Other: Meal Dinner Breakfast Percent of Meal Consumed 100% 100% Feeding Ability Independent # Voids 1 Weight 187 lb 1.6 oz Medical - DS: Data Labs on day of discharge: Labs from last 24 hours 05/18/20 05/18/20 05:01 05:01 WBC 4.0 L RBC 4.14 L Hgb 12.8 L Hct 37.9 L MCV 91.5 MCH 30.9 MCHC 33.8 RDW 12.2 Plt Count 161 MPV 11.0 H Total Counted Pending Band Neutrophils % Not Reportable Platelet Estimate Pending RBC Morphology Pending Sodium 141 Potassium 3.6 Chloride 104 Carbon Dioxide 26 Anion Gap 11.0 BUN 9 Creatinine 1.0 GFR Calculation 84 Glucose 122 H Uric Acid 5.7 Calcium 9.0 Phosphorus 4.6 H Magnesium 2.4 Total Bilirubin 0.5 Direct Bilirubin < 0.2 GGT 154 H AST 27 ALT 55 H Alkaline Phosphatase 60 Lactate Dehydrogenase 173 Total Protein 6.2 Albumin 3.8 Globulin 2.4 Albumin/Globulin Ratio 1.6 Triglycerides 152 H Medical - DS: A/P - Patient/Caregiver Discharge Instructions Activity: increase activity as tolerated Diet: Low Fat Additional Instructions: Low-fat diet Refrain from alcohol use Return to ER if worsening abdominal pain nausea vomiting Follow-up PCP in 5 to 7 days Prescriptions: oxyCODONE HCL [Roxicodone] 5 mg PO Q4-6HP PRN #6 tab PRN Reason: Per Pain Protocol Prescription Printed - Problem Maintenance (1) Pancreatitis, acute Status: Acute - Follow up Plan Follow up with: Patti Thompson ARNP [Primary Care Provider] - Disposition: Home, Self-Care Prognosis: Fair Rehab Potential: Fair I certify that the patient requires SNF services: No Overall status at discharge: patient is progressing back to baseline Medical - DS: Qual - VTE Deep Vein Thrombosis/Pulmonary Embolism Present on Admission: No
[2020-05-18 10:54] LABS: Band Neutrophils % 1 % (0-10); Eosinophils % (Manual) 2 % (0-7); Lymphocytes % 37 % (15-49); Monocytes % (Manual) 8 % (1-12); Platelet Estimate NORMAL (NORMAL); Polychromasia 1+ (NONE SEEN); RBC Morphology ABNORM (NORMAL); Reactive Lymphocytes 4 % (0-2); Segmented Neutrophils % 48 % (38-78)
== END 2020-05-18 11:31 | disposition home or self-care (01) | DRG 440 ==
LOC: ED 10:01 → MEDSUR 14:55
PROVIDERS: ADMIT Internal Medicine; ATTEND Internal Medicine

== ENCOUNTER 2021-10-23 14:18 | Inpatient (IN) ==
[2021-10-23] MEDS ORDERED: 0.9 % SODIUM CHLORIDE 1,000 ML IV ONE ×2 (14:58→18:00)
--- NOTE | 2021-10-23 15:01 | Emergency Department Note ---
HPI General Chief complaint: Blood Sugar Problem Stated complaint: blood sugar problem Time Seen by Provider: 10/23/21 14:51 Source: patient Mode of arrival: ambulatory Limitations: no limitations History of Present Illness HPI Narrative: This 56-year-old male who presents with elevated blood sugars and acute right- sided abdominal pain. He has a history of recurrent pancreatitis and states this feels very similar. No nausea or vomiting, last normal bowel movement was this morning. No melena or hematochezia. He does have a history of a partial colectomy for perforated bowel, appendectomy, and cholecystectomy. He was sent over by the health educator today for complaints of abdominal pain and elevated blood sugars. He has been worked up for diabetes and insulin has not been started by his primary care provider until he underwent diabetic education. His presenting blood sugar is 391 on [id number] today. He states that they have been running this high for at least a month. He does endorse po lydipsia and polyuria. Related Data Previous Rx's Medication Instructions Recorded allopurinol 300 mg tablet 150 mg PO QDAY #30 tab 02/27/21 hydrocodone 10 mg-acetaminophen 1 tab PO .Q4-6H #120 tab 05/26/21 325 mg tablet atorvastatin 20 mg tablet (Lipitor) 20 mg PO QHS #30 tab 08/21/21 acetaminophen 500 mg tablet 1,000 mg PO Q6H PRN #60 tab 10/04/21 ibuprofen 400 mg tablet (IBU) 400 mg PO Q8H PRN #30 tab 10/04/21 morphine 15 mg immediate release 7.5 mg PO Q8H PRN #5 tab 10/04/21 tablet ondansetron HCl 4 mg tablet 4 mg PO Q8H PRN #6 tab 10/04/21 methylphenidate HCl 10 mg tablet 10 mg PO .COMPLEX #90 tab 10/11/21 (Ritalin) Allergies Allergy/AdvReac Type Severity Reaction Status Date / Time codeine Allergy Mild Rash Verified 10/23/21 14:21 Review of Systems ROS ROS Narrative: Narrative: All systems ED: reviewed and negative except as stated. [facility] Narrative Patient History Narrative: Narrative: Medical/Surgical/Family History All Active Problems (Updated 10/23/21 @ 19:42 by Verito Reyes PA-C) DKA (diabetic ketoacidosis) (Acute) Acute on chronic pancreatitis (Acute) Diabetic peripheral neuropathy associated with type 2 diabetes mellitus (Acute) Pancreatitis, chronic (Acute) ADHD (Chronic) Hypertension (Acute) Left frontal lobe lesion (Acute) Weakness (Acute) Knee buckling (Acute) Snoring (Chronic) Nocturnal hypoxia (Chronic) Gout (Acute) Chronic recurrent pancreatitis (Acute) Abscess (Acute) Facial basal cell cancer (Acute) Pre-diabetes (Acute) TBI (traumatic brain injury) (Chronic) Migraine-cluster headache syndrome (Acute) Depressed skull fracture (Chronic) History of cholecystectomy (Chronic ~2019) History of partial colectomy (Chronic ~2018) History of appendectomy (Chronic ~2018) Headache (Chronic) ADD (attention deficit disorder) (Chronic) Foot pain (Chronic) Knee pain (Chronic) Shoulder pain (Chronic) Hand pain (Chronic) Hepatitis (Chronic) Pancreatitis, acute (Chronic) Intractable abdominal pain (Chronic) Medical History ADD (attention deficit disorder) ADHD Depressed skull fracture Foot pain Hand pain Headache Hepatitis Intractable abdominal pain Knee pain Nocturnal hypoxia Pancreatitis, acute Shoulder pain Snoring Surgical History History of appendectomy (~2018) History of cholecystectomy (~2019) History of partial colectomy (~2018) Family History Other No pertinent family history Social History Smoking Status: Former smoker Alcohol Intake Frequency: holiday/special occasion only Substance Use: does not use Exam Narrative Narrative: General: AOx3, NAD, unwell appearing. Pleasant and conversant. HEENT: PERRL, EOMI, normocephalic. Dry mucous membranes. Normal facies and normal dentition. Chest: Symmetric Respiratory: No respiratory distress. Unlabored breathing. Heart: Regular rate and rhythm, no murmurs/clicks/rubs. Abdomen: Mild right upper quadrant tenderness, no peritoneal signs. Non distended. No organomegaly. Extremities: Warm and well perfused. No edema. DP 2+ bilaterally. No venous stasis. Neuro: No focal deficits. Cranial nerves II-XII grossly normal. Skin: Warm dry, no rashes or lesions, no cyanosis. Psych: Normal mood and affect Heme/Lymph: No abnormal bruising General Limitations: no limitations Course Course Course Narrative: 56-year-old male with new diagnosis of type 2 diabetes presents with hyperglycemia and acute abdominal pain Reevaluation(s) Reevaluation #1: Obtain CBC, CMP, VBG to query for DKA Start IV fluids and give 5 units IV insulin x1 dose Reevaluation #2: VBG with pH of 7.26 PCO2 34 bicarb of 15.3. Anion gap of 24. Will treat patient for DKA. He has already been given 1 L of IV fluids and 5 units of IV insulin. Blood sugars dropped from 391-221 by [id number] measurement. We will start D5 one half normal saline at 250 mL's per hour now and initiate insulin drip at 0.1 units per/kg per hour. Check electrolytes at 7 PM. Patient will need admission and awaiting hospitalist for consult. Lipase is mildly elevated at 71. We will continue IV pain medication as needed. N.p.o. Vital Signs Vital signs: Vital Signs Temperature 98.0 F 10/23/21 14:18 Pulse Rate 104 H 10/23/21 14:18 Respiratory Rate 16 10/23/21 14:18 Blood Pressure 124/95 10/23/21 14:18 Pulse Oximetry (%) 97 10/23/21 14:18 Temperature 98.0 F 10/23/21 14:18 Pulse Rate 81 10/23/21 19:32 Respiratory Rate 16 10/23/21 14:18 Blood Pressure 131/84 10/23/21 19:32 Pulse Oximetry (%) 97 10/23/21 19:32 [facility] MDM Narrative Medical decision making narrative: Diabetic ketoacidosis Chronic pancreatitis Patient lipase is 71. I think most of his symptoms are related to his DKA. He is initiated on an insulin drip and D5W one half normal saline. I signed the patient out to the hospitalist who has accepted the patient for admission. A CMP is pending at 7 PM. Lab Data Result diagrams: 10/23/21 14:30 10/23/21 14:30 Labs: Lab Results 10/23/21 10/23/21 Range/Units 14:30 14:30 WBC 8.0 (4.5-11.0) K/mcL RBC 5.38 (4.63-6.08) M/mcL Hgb 16.7 (13.7-17.5) g/dL Hct 46.1 (40.1-51.0) % MCV 85.7 (80.0-100.0) fL MCH 31.0 (26.0-34.0) pg MCHC 36.2 H (31.0-36.0) g/dL RDW 11.3 L (11.5-14.5) % Plt Count 256 (140-440) K/mcL MPV 12.9 H (7.4-10.4) fL Neut % (Auto) 57.4 (38.0-78.0) % Lymph % (Auto) 35.1 (15.5-49.0) % [place] % (Auto) 6.4 (1.0-12.0) % Eos % (Auto) 0.7 (0.0-7.0) % Baso % (Auto) 0.4 (0.0-2.0) % Lymph # (Auto) 2.82 (1.50-4.80) K/mcL [place] # (Auto) 0.51 (0.10-0.90) K/mcL Eos # (Auto) 0.06 (0.00-0.70) K/mcL Baso # (Auto) 0.03 (0.00-0.30) K/mcL Absolute Neutrophils 4.61 (1.80-8.00) K/mcL Sodium 130 L (133-145) mmol/L Potassium 4.4 (3.3-5.1) mmol/L Chloride 93 L (96-108) mmol/L Carbon Dioxide 13 L (22-30) mmol/L Anion Gap 24.0 H (8.0-16.0) BUN 16 (6-20) mg/dL Creatinine 1.1 (0.7-1.2) mg/dL GFR Calculation 74 Glucose 419 H (70-105) mg/dL Calcium 9.7 (8.6-10.4) mg/dL Total Bilirubin 0.5 (0.1-1.0) mg/dL AST 18 (<40) U/L ALT 18 (<40) U/L Alkaline Phosphatase 90 (39-117) U/L Total Protein 7.8 (5.9-8.4) gm/dL Albumin 4.6 (3.2-5.2) gm/dL Globulin 3.2 (2.2-3.7) gm/dL Albumin/Globulin Ratio 1.4 (1.0-2.3) Lipase 71 H (7-60) U/L ED POC Tests ED POC Tests: NUNU - SARS Antigen Negative CC TIME Critical Care Time Total Critical Care Time: 32 Attestation: I personally spent a total of 32 minutes of critical care time in obtaining his tory, performing a physical exam, bedside monitoring of interventions, collecting interpreting tests and discussions with consultants but excluding time spent performing procedures, treating other patients and teaching time. Clinical concern diabetic ketoacidosis and rapid clinical deterioration Intervention initiation of insulin drip and IV fluids. Admission for DKA. Discharge Plan Patient/Caregiver Discharge Instructions Pt seen by HEALTH SPECIALIST/PA only: Yes Clinical Impression: DKA (diabetic ketoacidosis), Acute on chronic pancreatitis Patient Disposition: Xfer As Inpt ([facility]) Condition: Fair Follow up with: Gregory Horan MD [Primary Care Provider] - Prescriptions: No Action hydrocodone-acetaminophen 10-325 mg tablet 1 tab PO .Q4-6H Qty: 120 0RF methylphenidate HCl [Ritalin] 10 mg tablet 10 mg PO .COMPLEX Qty: 90 0RF Rx Instructions: 10 mg PO 2 tablets in the morning, 1 tablet at noon; atorvastatin [Lipitor] 20 mg tablet 20 mg PO QHS Qty: 30 6RF allopurinol 300 mg tablet 150 mg PO QDAY Qty: 30 6RF acetaminophen 500 mg tablet 1,000 mg PO Q6H PRN (Reason: pain) Qty: 60 0RF ondansetron HCl 4 mg tablet 4 mg PO Q8H PRN (Reason: nausea and vomiting) Qty: 6 0RF ibuprofen [IBU] 400 mg tablet 400 mg PO Q8H PRN (Reason: pain) Qty: 30 0RF morphine 15 mg tablet 7.5 mg PO Q8H PRN (Reason: pain) Qty: 5 0RF
[2021-10-23] MEDS: HYDROmorphone 1 MG/ML SYRINGE IV PRN ×6 (15:46→22:59)
[2021-10-23] MEDS ORDERED: INSULIN REGULAR, HUMAN 1 UNIT/0.01 ML UNIT IV ONE (16:39)
[2021-10-23 16:50] LABS: Basophils # (Auto) 0.03 K/mcL (0.00-0.30); Basophils % (Auto) 0.4 % (0.0-2.0); Eosinophils # (Auto) 0.06 K/mcL (0.00-0.70); Eosinophils % (Auto) 0.7 % (0.0-7.0); Hematocrit 46.1 % (40.1-51.0); Hemoglobin 16.7 g/dL (13.7-17.5); Lymphocytes # (Auto) 2.82 K/mcL (1.50-4.80); Lymphocytes % (Auto) 35.1 % (15.5-49.0); Mean Cell Volume 85.7 fL (80.0-100.0); Mean Corpuscular HGB Conc 36.2 g/dL (31.0-36.0); Mean Platelet Volume 12.9 fL (7.4-10.4); Monocytes # (Auto) 0.51 K/mcL (0.10-0.90); Monocytes % (Auto) 6.4 % (1.0-12.0); Neutrophils % (Auto) 57.4 % (38.0-78.0); Platelet Count 256 K/mcL (140-440); RBC 5.38 M/mcL (4.63-6.08); Red Cell Distribution Width 11.3 % (11.5-14.5)
[2021-10-23 17:05] LABS: ALT/SGPT 18 U/L (<40); AST/SGOT 18 U/L (<40); Albumin 4.6 gm/dL (3.2-5.2); Albumin/Globulin Ratio 1.4 (1.0-2.3); Alkaline Phosphatase 90 U/L (39-117); Bilirubin,Total 0.5 mg/dL (0.1-1.0); Blood Urea Nitrogen 16 mg/dL (6-20); Calcium 9.7 mg/dL (8.6-10.4); Carbon Dioxide 13 mmol/L (22-30); Chloride 93 mmol/L (96-108); Globulin 3.2 gm/dL (2.2-3.7); Glomerular Filtration Rate 74; Glucose 419 mg/dL (70-105)
[2021-10-23] MEDS: DEXTROSE 5%-1/2NS 1,000 ML IV SCH (19:30)
[2021-10-23] MEDS: INSULIN REGULAR, HUMAN 50 UNIT in 0.9 % SODIUM CHLORIDE 99.5 ML IV SCH (19:30)
[2021-10-23 20:26] LABS: ALT/SGPT 15 U/L (<40); AST/SGOT 16 U/L (<40); Albumin 4.2 gm/dL (3.2-5.2); Albumin/Globulin Ratio 1.4 (1.0-2.3); Alkaline Phosphatase 73 U/L (39-117); Bilirubin,Total 0.4 mg/dL (0.1-1.0); Blood Urea Nitrogen 17 mg/dL (6-20); Calcium 8.6 mg/dL (8.6-10.4); Carbon Dioxide 13 mmol/L (22-30); Chloride 99 mmol/L (96-108); Glomerular Filtration Rate 83; Glucose 234 mg/dL (70-105)
[2021-10-23] MEDS ORDERED: ONDANSETRON 4 MG/2 ML VIAL IV PRN (22:10)
[2021-10-23] MEDS ORDERED: MAGNESIUM SULFATE 2 GM/50 ML BAG IV ONE ×2 (22:10→23:01)
[2021-10-23] MEDS ORDERED: ONDANSETRON 4 MG ODT TABLET SL PRN (22:10)
[2021-10-23] MEDS ORDERED: ACETAMINOPHEN 650 MG/65 ML BAG IV PRN (22:10)
[2021-10-23] MEDS ORDERED: BISACODYL 10 MG SUPP.RECT PR PRN (22:10)
[2021-10-23] MEDS ORDERED: MAGNESIUM SULFATE 2 GM/50 ML BAG IV PRN (22:10)
[2021-10-23] MEDS ORDERED: ACETAMINOPHEN 325 MG TABLET PO PRN (22:10)
[2021-10-23] MEDS ORDERED: POTASSIUM CHLORIDE 20 MEQ PACKET PO PRN (22:10)
[2021-10-23] MEDS ORDERED: POLYETHYLENE GLYCOL 3350 17 GM PACKET PO PRN (22:10)
[2021-10-23] MEDS ORDERED: MELATONIN 3 MG TABLET PO PRN (22:10)
[2021-10-23] MEDS ORDERED: POTASSIUM CHLORIDE 40 MEQ in DEXTROSE 5% IN WATER 500 ML IV PRN (22:10)
[2021-10-23] MEDS ORDERED: HYDROcodone/APAP 10/325MG TABLET PO SCH (22:15)
--- NOTE | 2021-10-23 22:15 | Internal Med History&Physical ---
HPI History of Present Illness Patient information: Note initiated : 10/23/21 at 10:15 pm Service Date, if different from initiated Date: [] Patient: Davon Gonzalez a 56 y/o M admitted on 10/23/21 for blood sugar problem. Chief Complaint: [] History of present illness: Mr. Gonzalez is a 56 year old M with a history of recurrent gallstone pancreatitis, bowel necrosis/partial colectomy and recently diagnosed type 2 diabetes/DJD/neuropathy/hyperlipidemia and gout who presents to the ER with increasing weakness over the last few days that was associated with upper abdominal pain that started this morning described as aching nonradiating pain 4 out of 10 to 8 out of 10 associated with nausea. He denies any triggering events including URI/alcohol intake/high fatty diet or medication changes. Patient has been following her primary care physician and was scheduled to be started on insulin after following up with religious educator. However in the interim she started to experience above symptoms including abdominal pain/nausea and the reason for ER visit Initial work-up in the ER was consistent with DKA with elevated anion gap, pH 7.26, bicarb 13. Patient was started on insulin drip and subsequently hospital service was consulted. At the time of evaluation patient is alert and oriented. He was able to answer most the questions. He denies chest pain, shortness of breath, URI symptoms, sick contact, diarrhea, dysuria, joint pain, rash. He however endorses to polyphagia, polydipsia and increased urination Review of systems 10 point review system was performed and is negative except for ones discussed above PFSH PFSH All Active Problems (Updated 10/23/21 @ 19:42 by Verito Reyes PA-C) DKA (diabetic ketoacidosis) (Acute) Acute on chronic pancreatitis (Acute) Diabetic peripheral neuropathy associated with type 2 diabetes mellitus (Acute) Pancreatitis, chronic (Acute) ADHD (Chronic) Hypertension (Acute) Left frontal lobe lesion (Acute) Weakness (Acute) Knee buckling (Acute) Snoring (Chronic) Nocturnal hypoxia (Chronic) Gout (Acute) Chronic recurrent pancreatitis (Acute) Abscess (Acute) Facial basal cell cancer (Acute) Pre-diabetes (Acute) TBI (traumatic brain injury) (Chronic) Migraine-cluster headache syndrome (Acute) Depressed skull fracture (Chronic) History of cholecystectomy (Chronic ~2018) History of partial colectomy (Chronic ~2018) History of appendectomy (Chronic ~2018) Headache (Chronic) ADD (attention deficit disorder) (Chronic) Foot pain (Chronic) Knee pain (Chronic) Shoulder pain (Chronic) Hand pain (Chronic) Hepatitis (Chronic) Pancreatitis, acute (Chronic) Intractable abdominal pain (Chronic) Medical History ADD (attention deficit disorder) ADHD Depressed skull fracture Foot pain Hand pain Headache Hepatitis Intractable abdominal pain Knee pain Nocturnal hypoxia Pancreatitis, acute Shoulder pain Snoring Surgical History History of appendectomy (~2018) History of cholecystectomy (~2018) History of partial colectomy (~2017) Family History Other No pertinent family history Social History marital status: occupational status: unemployed smoking status: Former smoker alcohol intake frequency: holiday/special occasion only substance use type: does not use MEDS/ALLERGIES Home Medications and Allergies Home Medications Medication Instructions Recorded Confirmed Type allopurinol 300 mg tablet 150 mg PO QDAY #30 tab 02/27/21 10/23/21 Rx hydrocodone 10 mg-acetaminophen 1 tab PO .Q4-6H #120 tab 05/26/21 10/23/21 Rx 325 mg tablet atorvastatin 20 mg tablet (Lipitor) 20 mg PO QHS #30 tab 08/21/21 10/23/21 Rx acetaminophen 500 mg tablet 1,000 mg PO Q6H PRN #60 tab 10/04/21 10/23/21 Rx ibuprofen 400 mg tablet (IBU) 400 mg PO Q8H PRN #30 tab 10/04/21 10/23/21 Rx methylphenidate HCl 10 mg tablet 10 mg PO .COMPLEX #90 tab 10/11/21 10/23/21 Rx (Ritalin) gabapentin 300 mg capsule 300 mg PO TID 10/23/21 10/23/21 History Allergies Allergy/AdvReac Type Severity Reaction Status Date / Time codeine Allergy Mild Rash Verified 10/23/21 14:21 EXAM Constitutional Vitals: Temp Pulse Resp BP Pulse Ox 98.0 F 64 12 101/80 93 10/23/21 20:10 10/23/21 22:01 10/23/21 22:01 10/23/21 22:01 10/23/21 22:01 Anxious but nondistressed Head normocephalic Oral cavity dry No ear or nose discharge Eye no subconjunctival pallor, movement symmetrical S1-S2 occasionally irregular, ESM grade 1 Nonlabored breathing Nondistended nontender abdomen Lower extremity no cyanosis clubbing or joint swelling Skin no suspicious lesion Psych anxious but no hallucination Neuro normal higher function on limited neuro exam DATA Data Completed and Pending Labs: Labs from last 24 hours 10/23/21 10/23/21 10/23/21 19:12 15:00 14:30 WBC RBC Hgb Hct MCV MCH MCHC RDW Plt Count MPV Neut % (Auto) Lymph % (Auto) Grant % (Auto) Eos % (Auto) Baso % (Auto) Lymph # (Auto) Grant # (Auto) Eos # (Auto) Baso # (Auto) Absolute Neutrophils Sodium 131 L 130 L Potassium 4.4 4.4 Chloride 99 93 L Carbon Dioxide 13 L 13 L Anion Gap 19.0 H 24.0 H BUN 17 16 Creatinine 1.0 1.1 GFR Calculation 83 74 Glucose 234 H 419 H Calcium 8.6 9.7 Total Bilirubin 0.4 0.5 AST 16 18 ALT 15 18 Alkaline Phosphatase 73 90 Total Protein 7.2 7.8 Albumin 4.2 4.6 Globulin 3.0 3.2 Albumin/Globulin Ratio 1.4 1.4 Lipase 71 H Urine Color Pending Urine Appearance Pending Urine pH Pending Ur Specific [place] Pending Urine Protein Pending Urine Glucose (UA) Pending Urine Ketones Pending Urine Occult Blood Pending Urine Nitrate Pending Urine Bilirubin Pending Urine Urobilinogen Pending Ur Leukocyte Esterase Pending 10/23/21 14:30 WBC 8.0 RBC 5.38 Hgb 16.7 Hct 46.1 MCV 85.7 MCH 31.0 MCHC 36.2 H RDW 11.3 L Plt Count 256 MPV 12.9 H Neut % (Auto) 57.4 Lymph % (Auto) 35.1 Grant % (Auto) 6.4 Eos % (Auto) 0.7 Baso % (Auto) 0.4 Lymph # (Auto) 2.82 Grant # (Auto) 0.51 Eos # (Auto) 0.06 Baso # (Auto) 0.03 Absolute Neutrophils 4.61 Sodium Potassium Chloride Carbon Dioxide Anion Gap BUN Creatinine GFR Calculation Glucose Calcium Total Bilirubin AST ALT Alkaline Phosphatase Total Protein Albumin Globulin Albumin/Globulin Ratio Lipase Urine Color Urine Appearance Urine pH Ur Specific [place] Urine Protein Urine Glucose (UA) Urine Ketones Urine Occult Blood Urine Nitrate Urine Bilirubin Urine Urobilinogen Ur Leukocyte Esterase A/P Narrative A/P Narrative: * Diabetic ketoacidosis-continue management per guidelines. Continue serial BMP/crystalloid/insulin drip/keep n.p.o. * Acute pancreatitis-crystalloids/keep n.p.o./bowel rest * Abdominal pain as needed opioids * Hyperlipidemia continue statin * Gout continue. All * Degenerative joint disease continue hydrocodone * Prophylaxis Heparin Plan * Inpatient monitored unit admission * DKA management protocol * Bowel rest * Serial CRP * Crystalloids * Pre-existing medical condition management home medications Time Spent With Patient Time: Critical care time spent in excess of 35 minutes on management of DKA in addition to time spent on history and physical Total time spent with greater than 50% in coordination of care (as documented) at patient's floor/unit and/or counseling patient:: Greater than 35 minutes QUALITY VTE Deep Vein Thrombosis/Pulmonary Embolism Present on Admission: No
[2021-10-23] MEDS ORDERED: HYDROmorphone 0.5 MG/0.5 ML SYRINGE IV PRN (22:33)
[2021-10-23 23:06] LABS: ABG Methemoglobin 0.3 % (0.4-1.5); Total Hemoglobin 14.3 gm/Dl (13.5-16.5); VBG Base Excess -6 (-2-2); VBG HCO3 18.7 mmol/L (24.0-28.0); VBG Oxygen Saturation 93.2 % (40.0-70.0); VBG PCO2 35.6 mmHg (41.0-51.0); VBG PH 7.34 U (7.32-7.42); VBG PO2 98.1 mmHg (25.0-40.0); VBG Total CO2 19.8 mmol/L (25.0-29.0)
[2021-10-23 23:40] LABS: ALT/SGPT 14 U/L (<40); AST/SGOT 14 U/L (<40); Albumin/Globulin Ratio 1.5 (1.0-2.3); Alkaline Phosphatase 69 U/L (39-117); Bilirubin,Direct < 0.2 mg/dL (0-0.3); Bilirubin,Total 0.4 mg/dL (0.1-1.0); Blood Urea Nitrogen 15 mg/dL (6-20); Calcium 8.6 mg/dL (8.6-10.4); Carbon Dioxide 17 mmol/L (22-30); Chloride 103 mmol/L (96-108); Globulin 2.7 gm/dL (2.2-3.7); Glomerular Filtration Rate 83; Glucose 89 mg/dL (70-105); Lactate Dehydrogenase 113 U/L (135-225); Phosphorous 2.6 mg/dL (2.5-4.5); Triglycerides 192 mg/dL (<150); Uric Acid 5.8 mg/dL (2.5-8.0)
[2021-10-24] MEDS ORDERED: DEXTROSE 50% 50 ML VIAL IV PRN (00:09)
[2021-10-24] MEDS ORDERED: DEXTROSE 50% 50 ML VIAL IV ONE (00:10)
[2021-10-24] MEDS: DEXTROSE 5%-1/2NS 1,000 ML IV SCH ×5 (00:11→14:44)
[2021-10-24] MEDS: HYDROmorphone 1 MG/ML SYRINGE IV PRN ×4 (00:41→06:52)
[2021-10-24 01:25] LABS: ABG Methemoglobin 0.3 % (0.4-1.5); Total Hemoglobin 13.5 gm/Dl (13.5-16.5); VBG Base Excess -7 (-2-2); VBG Oxygen Saturation 90.3 % (40.0-70.0); VBG PCO2 39.6 mmHg (41.0-51.0); VBG PO2 70.7 mmHg (25.0-40.0); VBG Total CO2 20.2 mmol/L (25.0-29.0)
[2021-10-24] MEDS ORDERED: ONDANSETRON 4 MG/2 ML VIAL ONE (02:08)
[2021-10-24] MEDS: 0.9 % SODIUM CHLORIDE 10 ML SYRINGE IV SCH ×3 (05:41→22:00)
[2021-10-24] MEDS: HEPARIN 5,000 UNIT/ML VIAL SQ SCH ×2 (08:02→20:28)
[2021-10-24] MEDS: MULTIVIT,THER IRON,CA,FA & MIN 1 TABLET PO SCH (08:03)
[2021-10-24] MEDS: DOCUSATE SODIUM 100 MG CAPSULE PO SCH ×2 (08:03→20:29)
[2021-10-24] MEDS: ALLOPURINOL 300 MG TABLET PO SCH (08:03)
[2021-10-24] MEDS: GABAPENTIN 300 MG CAPSULE PO SCH ×3 (08:03→20:28)
[2021-10-24 08:39] LABS: Basophils # (Auto) 0.03 K/mcL (0.00-0.30); Basophils % (Auto) 0.4 % (0.0-2.0); Eosinophils # (Auto) 0.05 K/mcL (0.00-0.70); Eosinophils % (Auto) 0.7 % (0.0-7.0); Hematocrit 39.1 % (40.1-51.0); Hemoglobin 14.1 g/dL (13.7-17.5); Lymphocytes # (Auto) 1.99 K/mcL (1.50-4.80); Lymphocytes % (Auto) 26.4 % (15.5-49.0); Mean Cell Volume 85.9 fL (80.0-100.0); Mean Corpuscular HGB Conc 36.1 g/dL (31.0-36.0); Mean Platelet Volume 12.2 fL (7.4-10.4); Monocytes # (Auto) 0.63 K/mcL (0.10-0.90); Monocytes % (Auto) 8.3 % (1.0-12.0); Neutrophils % (Auto) 64.2 % (38.0-78.0); Platelet Count 208 K/mcL (140-440); RBC 4.55 M/mcL (4.63-6.08); Red Cell Distribution Width 11.4 % (11.5-14.5); WBC 7.6 K/mcL (4.5-11.0)
[2021-10-24 09:07] LABS: ALT/SGPT 17 U/L (<40); AST/SGOT 21 U/L (<40); Albumin/Globulin Ratio 1.6 (1.0-2.3); Alkaline Phosphatase 61 U/L (39-117); Bilirubin,Direct < 0.2 mg/dL (0-0.3); Bilirubin,Total 0.4 mg/dL (0.1-1.0); Blood Urea Nitrogen 13 mg/dL (6-20); Calcium 8.1 mg/dL (8.6-10.4); Carbon Dioxide 18 mmol/L (22-30); Chloride 96 mmol/L (96-108); Globulin 2.5 gm/dL (2.2-3.7); Glomerular Filtration Rate 99; Glucose 153 mg/dL (70-105); Lactate Dehydrogenase 220 U/L (135-225); Phosphorous 2.1 mg/dL (2.5-4.5); Triglycerides 183 mg/dL (<150); Uric Acid 4.4 mg/dL (2.5-8.0)
[2021-10-24 10:28] LABS: Appearance,Urine CLEAR (Clear); Bilirubin,Urine Negative (Negative); Color,Urine YELLOW; Culture Indicated,Urine No; Glucose,Urine (UA) >=500 mg/dL (Negative); Ketones,Urine 80 mg/dL (Negative); Leukocyte Esterase,Urine Negative /uL (Negative); Nitrate,Urine Negative (Negative); Protein,Urine Negative (Negative); Specific Gravity,Urine 1.033 (1.000-1.035); Urine Blood Negative (Negative); Urine RBC 0 /hpf (0-3); Urine Squamous Epithelial Cell < 1 /hpf (0-4); Urine WBC < 1 /hpf (0-4); Urobilinogen,Urine Negative
--- NOTE | 2021-10-24 11:37 | Internal Med Progress Note ---
SUBJECTIVE Subjective Patient information: Note initiated : 10/24/21 at 11:33 am Service Date, if different from initiated Date: [] Patient: Davon Gonzalez a 56 y/o M admitted on 10/23/21 for blood sugar problem. Chief Complaint: [] Interval history: Mr. Gonzalez is a 56 year old M with a history of recurrent gallstone pancreatitis, bowel necrosis/partial colectomy and recently diagnosed type 2 diabetes/DJD/neuropathy/hyperlipidemia and gout who presents to the ER with increasing weakness over the last few days that was associated with upper abdominal pain that started this morning described as aching nonradiating pain 4 out of 10 to 8 out of 10 associated with nausea. He denies any triggering events including URI/alcohol intake/high fatty diet or medication changes. Patient has been following her primary care physician and was scheduled to be started on insulin after following up with unit educator. However in the interim she started to experience above symptoms including abdominal pain/nausea and the reason for ER visit Initial work-up in the ER was consistent with DKA with elevated anion gap, pH 7.26, bicarb 13. Patient was started on insulin drip and subsequently hospital service was consulted. At the time of evaluation patient is alert and oriented. He was able to answer most the questions. He denies chest pain, shortness of breath, URI symptoms, sick contact, diarrhea, dysuria, joint pain, rash. He however endorses to polyphagia, polydipsia and increased urination 10/24-patient clinically improving. No overnight events. No concerns per staff. Improving pH/anion gap/bicarb with insulin drip. Transition to subcu insulin/CC diet later today. Improving abdominal pain. Currently n.p.o. White count 7.6, pH improved to 7.3, bicarbonate 18, anion gap 11, phosphorus 2.6 on replacement Constitutional Vitals: Vital Signs Temp Pulse Resp BP Pulse Ox 96.9 F L 59 L 10 L 111/77 98 10/24/21 10:48 10/24/21 10:48 10/24/21 10:48 10/24/21 10:48 10/24/21 10:48 Period Temp Pulse Resp BP Sys/[place]illa Pulse Ox Last 24 Hr 96.9 F-98.0 F 53-104 10-24 99-158/68-107 84-100 Intake and Output 10/23/21 10/24/21 10/24/21 21:59 05:59 13:59 Intake Total 1111 3005 27 Output Total 0 0 Balance 1111 3005 27 Weight 78.16 kg Alert oriented Anxious and fidgety Truncal obesity but nontender abdomen No lymphedema Intake & Output: Intake & Output 10/23/21 10/24/21 10/24/21 21:59 05:59 13:59 Intake Total 1111 3005 27 Output Total 0 0 Balance 1111 3005 27 Weight 78.16 kg Intake: IV 1111 1935 27 Sodium Chloride 0.9% 1,000 ml @ 1000 Wide Open IV BOLUS ONE Rx#: [id number] Dextrose 5%-1/2Ns IV Solution 1 83 1846 ,000 ml @ 250 mls/hr IV .Q4H [facility] Rx#:[id number] HumuLIN R 50 UNIT In Sodium 28 39 27 Chloride 0.9% 99.5 ml @ 7.5 UNIT/HR 15 mls/hr IV DUR [facility] Rx #:[id number] Oral 1070 Output: Void Amount 0 0 Other: # Voids 0 OBJ DATA Labs CBC & Chem 7: 10/24/21 04:57 10/24/21 04:57 Labs: Abnormal Lab Results 10/24/21 10/24/21 10/24/21 04:57 04:57 01:03 RBC 4.55 L Hct 39.1 L MCHC 36.1 H RDW 11.4 L MPV 12.2 H ABG Methemoglobin 0.3 L VBG pH 7.30 L VBG pCO2 39.6 L VBG pO2 70.7 H VBG HCO3 19.0 L VBG Total CO2 20.2 L VBG O2 Saturation 90.3 H VBG Base Excess -7 L Carboxyhemoglobin 3.7 H Sodium 125 L Chloride Carbon Dioxide 18 L Anion Gap Glucose 153 H Calcium 8.1 L Phosphorus 2.1 L Magnesium 2.7 H Lactate Dehydrogenase Triglycerides 183 H Lipase Beta-Hydroxybutyrate Urine Glucose (UA) Urine Ketones 10/23/21 10/23/21 10/23/21 22:35 22:35 19:12 RBC Hct MCHC RDW MPV ABG Methemoglobin 0.3 L VBG pH VBG pCO2 35.6 L VBG pO2 98.1 H VBG HCO3 18.7 L VBG Total CO2 19.8 L VBG O2 Saturation 93.2 H VBG Base Excess -6 L Carboxyhemoglobin 4.3 H Sodium 131 L Chloride Carbon Dioxide 17 L 13 L Anion Gap 19.0 H Glucose 234 H Calcium Phosphorus Magnesium Lactate Dehydrogenase 113 L Triglycerides 192 H Lipase Beta-Hydroxybutyrate Urine Glucose (UA) Urine Ketones 10/23/21 10/23/21 10/23/21 15:00 14:30 14:30 RBC Hct MCHC RDW MPV ABG Methemoglobin VBG pH VBG pCO2 VBG pO2 VBG HCO3 VBG Total CO2 VBG O2 Saturation VBG Base Excess Carboxyhemoglobin Sodium 130 L Chloride 93 L Carbon Dioxide 13 L Anion Gap 24.0 H Glucose 419 H Calcium Phosphorus Magnesium Lactate Dehydrogenase Triglycerides Lipase 71 H Beta-Hydroxybutyrate 0.56 H Urine Glucose (UA) >=500 A Urine Ketones 80 A 10/23/21 14:30 RBC Hct MCHC 36.2 H RDW 11.3 L MPV 12.9 H ABG Methemoglobin VBG pH VBG pCO2 VBG pO2 VBG HCO3 VBG Total CO2 VBG O2 Saturation VBG Base Excess Carboxyhemoglobin Sodium Chloride Carbon Dioxide Anion Gap Glucose Calcium Phosphorus Magnesium Lactate Dehydrogenase Triglycerides Lipase Beta-Hydroxybutyrate Urine Glucose (UA) Urine Ketones Meds: Medications Acetaminophen (Acetaminophen 325 Mg Tablet) 650 mg PO Q4-6HP PRN; Protocol PRN Reason: Per Pain Protocol/Fever > 101 Hydrocodone Bitart/Acetaminophen (Hydrocodone/Apap 10/325mg Tablet) 1 tab PO .Q4-6H [facility]; Protocol Allopurinol (Allopurinol 300 Mg Tablet) 150 mg PO QDAY [facility] Last Admin: 10/24/21 08:03 Dose: 150 mg Documented by: Atorvastatin Calcium (Atorvastatin 20 Mg Tablet) 20 mg PO QHS [facility] Bisacodyl (Bisacodyl 10 Mg Supp.Rect) 10 mg TX Q2-3DAYS PRN PRN Reason: Constipation Dextrose (Dextrose 50% 50 Ml Vial) 25 ml IV UD PRN PRN Reason: Hypoglycemia Diagnostic Test (Pha) (Accu-Chek 1 Each Strip) 1 each FS Q1 [facility] Last Admin: 10/24/21 10:55 Dose: 1 each Documented by: Docusate Sodium (Docusate Sodium 100 Mg Capsule) 100 mg PO BID [facility] Last Admin: 10/24/21 08:03 Dose: 100 mg Documented by: Gabapentin (Gabapentin 300 Mg Capsule) 300 mg PO TID [facility] Last Admin: 10/24/21 08:03 Dose: 300 mg Documented by: Heparin Sodium (Porcine) (Heparin 5,000 Unit/Ml Vial) 5,000 unit SQ Q12 [facility] Last Admin: 10/24/21 08:02 Dose: 5,000 unit Documented by: Hydromorphone HCl (Hydromorphone 0.5 Mg/0.5 Ml Syringe) 0.5 mg IV Q4HP PRN; Protocol PRN Reason: Per Pain Protocol Last Admin: 10/24/21 09:11 Dose: 0.5 mg Documented by: Dextrose/Sodium Chloride (Dextrose 5%-1/2ns Iv Solution) 1,000 mls @ 250 mls/hr IV .Q4H [facility] Last Admin: 10/24/21 10:52 Dose: Not Given Documented by: Insulin Human Regular 50 unit/ (Sodium Chloride) 100 mls @ 15 mls/hr IV DUR [facility]; Protocol Last Titration: 10/24/21 10:58 Dose: 1.5 unit/hr, 3 mls/hr Documented by: Potassium Chloride 40 meq/ (Dextrose) 520 mls @ 130 mls/hr IV UD PRN PRN Reason: K+ = or < 3.5 Acetaminophen (Ofirmev) 650 mg in 65 mls @ 130 mls/hr IV Q6HP PRN; Protocol PRN Reason: Per Pain Protocol/Fever > 101 Magnesium Sulfate (Magnesium Sulfate) 2 gm in 50 mls @ 50 mls/hr IV UD PRN PRN Reason: MG = or < 1.7 Iron Carb/Multivit/[place]/Folic Acid (Multivit,Ther Iron,Ca,Fa & Min 1 Tablet) 1 tab PO DAILY [facility] Last Admin: 10/24/21 08:03 Dose: 1 tab Documented by: Melatonin (Melatonin 3 Mg Tablet) 3 mg PO HSP PRN PRN Reason: Insomnia Ondansetron HCl (Ondansetron 4 Mg Odt Tablet) 4 mg SL Q4-6HP PRN; Protocol PRN Reason: Nausea And Vomiting Ondansetron HCl (Ondansetron 4 Mg/2 Ml Vial) 4 mg IV Q4-6HP PRN; Protocol PRN Reason: Nausea And Vomiting Last Admin: 10/24/21 02:07 Dose: 4 mg Documented by: Methylphenidate Hcl [Ritalin] 10 Mg Tablet 2 dose PO QAM [facility] Last Admin: 10/24/21 09:50 Dose: Not Given Documented by: Methylphenidate Hcl [Ritalin] 10 Mg Tablet 1 dose PO DAILY@1200 [facility] Polyethylene Glycol (Polyethylene Glycol 3350 17 Gm Packet) 17 gm PO DAILYP PRN PRN Reason: Constipation Potassium Chloride (Potassium Chloride 20 Meq Packet) 40 meq PO DAILYP PRN PRN Reason: K+ < 3.5 Senna/Docusate Sodium (Sennosides/Docusate Sodium 1 Tab Tablet) 1 tab PO HS [facility] Sodium Chloride (0.9 % Sodium Chloride 10 Ml Syringe) 10 ml IV Q8 [facility] Last Admin: 10/24/21 05:41 Dose: Not Given Documented by: ABG Interpretation ABG results: 10/23/21 10/24/21 22:35 01:03 ABG Methemoglobin 0.3 L 0.3 L VBG pH 7.34 7.30 L VBG pCO2 35.6 L 39.6 L VBG pO2 98.1 H 70.7 H VBG HCO3 18.7 L 19.0 L VBG Total CO2 19.8 L 20.2 L VBG O2 Saturation 93.2 H 90.3 H VBG Base Excess -6 L -7 L A/P Narrative A/P Narrative: * Diabetic ketoacidosis-clinical improvement noted on DKA management protocol. Wean insulin drip, transition to subcu insulin/CC diet later today bicarb normalizes. Electrolyte replacement as indicated. Improved pH of 7.3 * Acute pancreatitis-clinically improving. Continue crystalloids/keep n. p.o./bowel rest/analgesics * Hyperlipidemia continue statin * Gout continue. All * Degenerative joint disease continue opioid * Prophylaxis Heparin Plan * DKA management per protocol, transition to subcu insulin/CC diet once bicarb normalizes * Electrolyte replacement * Bowel rest/crystalloids * Serial CRP * Pre-existing medical condition management home medications * Discharge planning Time Spent With Patient Time: Critical care time Total time spent with greater than 50% in coordination of care (as documented) at patient's floor/unit and/or counseling patient:: Greater than 35 minutes QUALITY VTE Deep Vein Thrombosis/Pulmonary Embolism Present on Admission: No
[2021-10-24] MEDS: INSULIN REGULAR, HUMAN 50 UNIT in 0.9 % SODIUM CHLORIDE 99.5 ML IV SCH (13:03)
[2021-10-24] MEDS: INSULIN GLARGINE, HUMAN 1 UNIT/0.01 ML SQ SCH (15:05)
[2021-10-24] MEDS: INSULIN LISPRO 1 UNIT/0.01 ML UNIT SQ SCH ×2 (17:55→20:32)
[2021-10-24] MEDS ORDERED: SENNOSIDES/DOCUSATE SODIUM 1 TAB TABLET PO SCH (21:00)
[2021-10-24] MEDS ORDERED: ATORVASTATIN 20 MG TABLET PO SCH (21:00)
[2021-10-25] MEDS: INSULIN LISPRO 1 UNIT/0.01 ML UNIT SQ SCH ×4 (00:08→11:22)
[2021-10-25] MEDS: 0.9 % SODIUM CHLORIDE 10 ML SYRINGE IV SCH (05:12)
[2021-10-25] MEDS: INSULIN GLARGINE, HUMAN 1 UNIT/0.01 ML SQ SCH (07:53)
[2021-10-25] MEDS: DOCUSATE SODIUM 100 MG CAPSULE PO SCH (07:53)
[2021-10-25] MEDS: GABAPENTIN 300 MG CAPSULE PO SCH (07:53)
[2021-10-25] MEDS: HEPARIN 5,000 UNIT/ML VIAL SQ SCH (07:53)
[2021-10-25] MEDS: MULTIVIT,THER IRON,CA,FA & MIN 1 TABLET PO SCH (07:54)
[2021-10-25] MEDS: ALLOPURINOL 300 MG TABLET PO SCH (07:54)
[2021-10-25 09:10] LABS: Basophils # (Auto) 0.02 K/mcL (0.00-0.30); Basophils % (Auto) 0.4 % (0.0-2.0); Eosinophils # (Auto) 0.05 K/mcL (0.00-0.70); Hematocrit 38.1 % (40.1-51.0); Hemoglobin 13.3 g/dL (13.7-17.5); Lymphocytes # (Auto) 2.18 K/mcL (1.50-4.80); Lymphocytes % (Auto) 44.2 % (15.5-49.0); Mean Cell Volume 85.6 fL (80.0-100.0); Mean Corpuscular HGB Conc 34.9 g/dL (31.0-36.0); Mean Platelet Volume 12.1 fL (7.4-10.4); Monocytes # (Auto) 0.43 K/mcL (0.10-0.90); Monocytes % (Auto) 8.7 % (1.0-12.0); Neutrophils % (Auto) 45.7 % (38.0-78.0); Platelet Count 173 K/mcL (140-440); RBC 4.45 M/mcL (4.63-6.08); Red Cell Distribution Width 11.4 % (11.5-14.5); WBC 4.9 K/mcL (4.5-11.0)
--- NOTE | 2021-10-25 09:13 | Discharge Summary ---
Discharge Provider Provider Patient information: Note initiated : 10/25/21 at 9:11 am Service Date, if different from initiated Date: [] Patient: Davon Gonzalez 56 y/o M admitted on 10/23/21 for blood sugar problem. Chief Complaint: [] Date of admission: 10/23/21 19:52 Discharge date: 10/25/21 Primary care physician: Gregory Horan MD Consults: 10/23/21 Consult to Physician [CONS] Stat Comment: Consulting Provider: Timbo Garcia Reason For Exam: Physician to Consult Discharge Meds Discharge Medications Home Medications allopurinol 300 mg tablet 150 mg PO QDAY #30 tab 02/27/21 [Rx Confirmed 10/23/21 Last Taken 10/22/21] hydrocodone 10 mg-acetaminophen 325 mg tablet 1 tab PO .Q4-6H #120 tab 05/26/21 [Rx Confirmed 10/23/21 Last Taken 10/02/21] atorvastatin 20 mg tablet (Lipitor) 20 mg PO QHS #30 tab 08/21/21 [Rx Confirmed 10/23/21 Last Taken Unknown] acetaminophen 500 mg tablet 1,000 mg PO Q6H PRN #60 tab 10/04/21 [Rx Confirmed 10/23/21 Last Taken Unknown] ibuprofen 400 mg tablet (IBU) 400 mg PO Q8H PRN #30 tab 10/04/21 [Rx Confirmed 10/23/21 Last Taken 10/16/21] methylphenidate HCl 10 mg tablet (Ritalin) 10 mg PO .COMPLEX #90 tab 10/11/21 [Rx Confirmed 10/23/21 Last Taken 10/22/21] gabapentin 300 mg capsule 300 mg PO TID 10/23/21 [History Confirmed 10/23/21 Last Taken 10/22/21] blood-glucose meter (Blood Glucose Monitoring) #1 ea 10/25/21 [Rx Last Taken Unknown] insulin glargine 100 unit/mL subcutaneous solution (Lantus U-100 Insulin) 25 unit (0.25 mL) SUBCUT DAILY 90 Days #20 ml 10/25/21 [Rx Last Taken Unknown] metformin 500 mg tablet,extended release 24 hr 500 mg PO QDAY #60 tab 10/25/21 [Rx Last Taken Unknown] COURSE Hospital Course Hospital course: Discharge diagnosis * Diabetic ketoacidosis-clinically resolved with management per protocol. Off insulin drip and now basal insulin. Discharging advised to follow-up with PCP/continue diabetic education/diabetic diet * Acute pancreatitis-clinically improved. Advised to refrain from high fat diet/alcohol * Hyperlipidemia managed on home dose statin * Gout -no acute flare. Stable on allopurinol * Degenerative joint disease continue opioid Brief hospital course Mr. Gonzalez is a 56 year old M with a history of recurrent gallstone pancreatitis, bowel necrosis/partial colectomy and recently diagnosed type 2 diabetes/DJD/neuropathy/hyperlipidemia and gout who presents to the ER with increasing weakness over the last few days that was associated with upper abdominal pain that started this morning described as aching nonradiating pain 4 out of 10 to 8 out of 10 associated with nausea. He denies any triggering events including URI/alcohol intake/high fatty diet or medication changes. Patient has been following her primary care physician and was scheduled to be started on insulin after following up with primary special educator. However in the interim she started to experience above symptoms including abdominal pain/nausea and the reason for ER visit Initial work-up in the ER was consistent with DKA with elevated anion gap, pH 7.26, bicarb 13. Patient was started on insulin drip and subsequently hospital service was consulted. At the time of evaluation patient is alert and oriented. He was able to answer most the questions. He denies chest pain, shortness of breath, URI symptoms, sick contact, diarrhea, dysuria, joint pain, rash. He however endorses to polyphagia, polydipsia and increased urination 10/24-patient clinically improving. No overnight events. No concerns per staff. Improving pH/anion gap/bicarb with insulin drip. Transition to subcu insulin/CC diet later today. Improving abdominal pain. Currently n.p.o. White count 7.6, pH improved to 7.3, bicarbonate 18, anion gap 11, phosphorus 2.6 on replacement 10/25-patient doing well. Much improved blood sugar. On 25 units Lantus. Tolerating diet. Feels a lot better. Advised to follow-up with PCP/diabetic education. Continue diabetic diet. No overnight fever chills. Feels back at baseline Discharge diagnosis: DKA Time Spent with Patient Time attestation: Total time spent providing and/or coordinating discharge services: EXAM Constitutional Vitals: Temp Pulse Resp BP Pulse Ox 97.5 F 81 16 111/87 96 10/25/21 04:01 10/25/21 06:19 10/25/21 06:19 10/25/21 06:01 10/25/21 06:19 Discharge Data Data Completed and Pending Labs on day of discharge: Labs from last 24 hours 10/25/21 10/25/21 10/23/21 04:56 04:56 15:00 WBC 4.9 RBC 4.45 L Hgb 13.3 L Hct 38.1 L MCV 85.6 MCH 29.9 MCHC 34.9 RDW 11.4 L Plt Count 173 MPV 12.1 H Neut % (Auto) 45.7 Lymph % (Auto) 44.2 [place] % (Auto) 8.7 Eos % (Auto) 1.0 Baso % (Auto) 0.4 Lymph # (Auto) 2.18 [place] # (Auto) 0.43 Eos # (Auto) 0.05 Baso # (Auto) 0.02 Absolute Neutrophils 2.25 Sodium Pending Potassium Pending Chloride Pending Carbon Dioxide Pending Anion Gap Pending BUN Pending Creatinine Pending GFR Calculation Pending Glucose Pending Uric Acid Pending Calcium Pending Phosphorus Pending Magnesium Pending Total Bilirubin Pending Direct Bilirubin Pending GGT Pending AST Pending ALT Pending Alkaline Phosphatase Pending Lactate Dehydrogenase Pending Total Protein Pending Albumin Pending Globulin Pending Albumin/Globulin Ratio Pending Triglycerides Pending Beta-Hydroxybutyrate Urine Color Yellow Urine Appearance Clear Urine pH 5.0 Ur Specific [place] 1.033 Urine Protein Negative Urine Glucose (UA) >=500 A Urine Ketones 80 A Urine Occult Blood Negative Urine Nitrate Negative Urine Bilirubin Negative Urine Urobilinogen Negative Ur Leukocyte Esterase Negative Urine RBC 0 Urine WBC < 1 Ur Squamous Epith Cells < 1 Urine Bacteria None Ur Culture Indicated? No 10/23/21 14:30 WBC RBC Hgb Hct MCV MCH MCHC RDW Plt Count MPV Neut % (Auto) Lymph % (Auto) [place] % (Auto) Eos % (Auto) Baso % (Auto) Lymph # (Auto) [place] # (Auto) Eos # (Auto) Baso # (Auto) Absolute Neutrophils Sodium Potassium Chloride Carbon Dioxide Anion Gap BUN Creatinine GFR Calculation Glucose Uric Acid Calcium Phosphorus Magnesium Total Bilirubin Direct Bilirubin GGT AST ALT Alkaline Phosphatase Lactate Dehydrogenase Total Protein Albumin Globulin Albumin/Globulin Ratio Triglycerides Beta-Hydroxybutyrate 0.56 H Urine Color Urine Appearance Urine pH Ur Specific [place] Urine Protein Urine Glucose (UA) Urine Ketones Urine Occult Blood Urine Nitrate Urine Bilirubin Urine Urobilinogen Ur Leukocyte Esterase Urine RBC Urine WBC Ur Squamous Epith Cells Urine Bacteria Ur Culture Indicated? Discharge Plan Patient/Caregiver Discharge Instructions Activity: increase activity as tolerated Diet: Consistent Carbohydrate Activity Restrictions/Additional Instructions: * Continue insulin glargine 25-30 every morning units and titrate with fasting a.m. blood sugar * Metformin 500 once daily * Follow-up PCP in 5 to 7 days * Daily blood sugar monitoring/outpatient diabetic education Prescriptions: New Lantus U-100 Insulin 100 unit/mL Solution 25 unit subcut DAILY 90 Days Qty: 20 0RF metformin 500 mg tablet extended release 24 hr 500 mg PO QDAY Qty: 60 0RF (DME) blood-glucose meter [Blood Glucose Monitoring] Kit See Rx Instructions .Route Qty: 1 0RF Rx Instructions: As directed Continued hydrocodone-acetaminophen 10-325 mg tablet 1 tab PO .Q4-6H Qty: 120 0RF methylphenidate HCl [Ritalin] 10 mg tablet 10 mg PO .COMPLEX Qty: 90 0RF Rx Instructions: 10 mg PO 2 tablets in the morning, 1 tablet at noon; atorvastatin [Lipitor] 20 mg tablet 20 mg PO QHS Qty: 30 6RF allopurinol 300 mg tablet 150 mg PO QDAY Qty: 30 6RF acetaminophen 500 mg tablet 1,000 mg PO Q6H PRN (Reason: pain) Qty: 60 0RF ibuprofen [IBU] 400 mg tablet 400 mg PO Q8H PRN (Reason: pain) Qty: 30 0RF gabapentin 300 mg capsule 300 mg PO TID 0RF Other Ambulatory Orders: Blood Glucose Strips (Routine) Location: None Selected Ordered By: Timbo Garcia Lancets (Routine) Location: None Selected Ordered By: Timbo Garcia Follow Up Plan Follow up with: Gregory Horan MD [Primary Care Provider] - Patient Disposition: Home, Self-Care Prognosis: Fair Rehab Potential: Fair I certify that the patient requires SNF services: No Overall status at discharge: patient is progressing back to baseline Discharge Orders: Discharge Order (Routine); Ordered 10/25/21 Ordered By: Timbo Garcia QUALITY VTE Deep Vein Thrombosis/Pulmonary Embolism Present on Admission: No
[2021-10-25 09:30] LABS: ALT/SGPT 18 U/L (<40); AST/SGOT 20 U/L (<40); Albumin 3.6 gm/dL (3.2-5.2); Albumin/Globulin Ratio 1.4 (1.0-2.3); Alkaline Phosphatase 63 U/L (39-117); Bilirubin,Direct < 0.2 mg/dL (0-0.3); Bilirubin,Total 0.3 mg/dL (0.1-1.0); Blood Urea Nitrogen 11 mg/dL (6-20); Calcium 8.8 mg/dL (8.6-10.4); Carbon Dioxide 21 mmol/L (22-30); Chloride 102 mmol/L (96-108); Globulin 2.5 gm/dL (2.2-3.7); Glomerular Filtration Rate 99; Glucose 164 mg/dL (70-105); Lactate Dehydrogenase 149 U/L (135-225); Phosphorous 3.1 mg/dL (2.5-4.5); Triglycerides 295 mg/dL (<150); Uric Acid 2.6 mg/dL (2.5-8.0)
== END 2021-10-25 11:45 | disposition home or self-care (01) | DRG 637 ==
LOC: ED 14:18 → ICU 19:52
PROVIDERS: ADMIT Internal Medicine; ATTEND Internal Medicine